=== PATIENT | female | born 1945 | race Caucasian/White ===

== ENCOUNTER 2020-07-16 10:13 | Outpatient (REF) | payer MEDICARE, SELFPAY ==
[2020-07-16 10:48] LABS: MANUAL DIFF FLAG NO
[2020-07-16 10:48] LABS: Urine Cytology See Pathology rpt
[2020-07-16 10:52] LABS: Basophils Absolute Auto 0.1 X10*3/uL (0.0-0.2); Basophils Percent Auto 0.7 % (0-2); Eosinophils Absolute Auto 0.3 X10*3/uL (0.0-0.4); Hematocrit 39.2 % (37-47); Hemoglobin 13.1 g/dl (12.0-16.0); Imm Gran Abs Auto 0.06 X10*3/uL (0.00-0.03); Imm Gran Pct Auto 0.8 % (0.0-0.4); Lymphocytes Absolute Auto 2.3 X10*3/uL (1.2-4.9); Lymphocytes Percent Auto 31.5 % (20-40); Mean Corpuscular HGB Conc 33.4 g/dl (31.0-35.0); Mean Corpuscular Hemoglobin 31.3 pg (27.0-33.0); Mean Corpuscular Volume 93.6 fL (80-98); Mean Platelet Volume 10.2 fL (9.4-12.3); Monocytes Absolute Auto 0.5 X10*3/uL (0.1-1.2); Monocytes Percent Auto 6.3 % (2-11); Neutrophils Absolute Auto 4.2 X10*3/uL (2.0-8.3); Neutrophils Percent Auto 56.7 % (45-73); Platelet Count 201 X10*3/uL (160-400); Red Blood Count 4.19 X10*6/uL (4.20-5.50); Red Cell Distribution Width 12.5 % (11.0-16.0); White Blood Count 7.3 X10*3/uL (4.8-10.8)
[2020-07-16 11:00] LABS: Glucose Urine UA NEG (NEG); Leukocyte Esterase Urine 1+ (NEG); Nitrite Urine NEG (NEG); Specific Gravity - Urine 1.025 (1.005-1.025); UACC Culture Trigger YES; Urine Blood TRACE (NEG); Urine Ketones NEG (NEG); Urine Protein NEG (NEG-TRACE)
[2020-07-16 11:02] LABS: Appearance Urine HAZY; Color Urine YELLOW
[2020-07-16 11:08] LABS: Renal Epithelial Cells Urine 1+ /LPF; Squamous Epithelial Cell Urine 1+ /LPF
[2020-07-16 11:29] LABS: Alanine Aminotransferase 21 U/L (0-31); Albumin Level 4.2 g/dL (3.5-5.0); Alkaline Phosphatase 83 U/L (39-117); Anion Gap 11 (12-20); Aspartate Amino Transferase 20 U/L (5-31); Bilirubin Total 0.8 mg/dL (0.0-1.0); Blood Urea Nitrogen 28 mg/dL (9-16); Calcium 9.3 mg/dL (8.4-10.2); Carbon Dioxide 30 mmol/L (22-29); Chloride 104 mmol/L (96-108); Estimated Glomerular Filt Rate 57; Glucose Random 96 mg/dL (60-115); Potassium 4.4 mmol/L (3.3-5.1); Sodium 141 mmol/L (135-145); Total Protein 7.1 g/dL (6.5-8.0)
[2020-07-16 11:32] LABS: Erythrocyte Sedimentation Rate 18 MM/HR (0-20)
[2020-07-16 11:41] LABS: TSH reflex Free T4 2.88 mIU/mL (0.32-4.0)
[2020-07-16 11:42] LABS: Creatinine Urine 85.87 mg/dL; Microalbumin Urine < 5.0 mg/L
[2020-07-19 16:01] LABS: Folate 17.7 ng/mL (> or = 4.0); Vitamin B12 269 pg/mL (200-900)
== END 2020-07-16 10:14 | disposition home or self-care (01) ==
LOC: HO.LAB 10:13
PROVIDERS: PCP Internal Medicine; Visit Provider Internal Medicine
DX: R41.0 Disorientation, unspecified (principal); R31.29 Other microscopic hematuria
CPT/HCPCS: 36415; 80053; 81001; 81003; 82043; 82607; 82746; 84443; 85025; 85652; 87086; 88112

== ENCOUNTER 2020-12-18 11:35 | Outpatient (REF) | payer MEDICARE, SELFPAY ==
[2020-12-18 15:14] LABS: MANUAL DIFF FLAG NO
[2020-12-18 15:49] LABS: Basophils Percent Auto 0.6 % (0-2); Eosinophils Absolute Auto 0.3 X10*3/uL (0.0-0.4); Eosinophils Percent Auto 4.7 % (0-4); Hematocrit 38.7 % (37-47); Imm Gran Abs Auto 0.03 X10*3/uL (0.00-0.03); Imm Gran Pct Auto 0.5 % (0.0-0.4); Lymphocytes Absolute Auto 2.1 X10*3/uL (1.2-4.9); Lymphocytes Percent Auto 31.9 % (20-40); Mean Corpuscular HGB Conc 33.6 g/dl (31.0-35.0); Mean Corpuscular Hemoglobin 31.2 pg (27.0-33.0); Mean Corpuscular Volume 92.8 fL (80-98); Mean Platelet Volume 10.4 fL (9.4-12.3); Monocytes Absolute Auto 0.4 X10*3/uL (0.1-1.2); Monocytes Percent Auto 6.7 % (2-11); Neutrophils Absolute Auto 3.6 X10*3/uL (2.0-8.3); Neutrophils Percent Auto 55.6 % (45-73); Platelet Count 180 X10*3/uL (160-400); Red Blood Count 4.17 X10*6/uL (4.20-5.50); Red Cell Distribution Width 12.3 % (11.0-16.0); White Blood Count 6.4 X10*3/uL (4.8-10.8)
[2020-12-18 16:01] LABS: Alanine Aminotransferase 21 U/L (0-31); Albumin Level 4.1 g/dL (3.5-5.0); Alkaline Phosphatase 84 U/L (39-117); Anion Gap 14 (12-20); Aspartate Amino Transferase 21 U/L (5-31); Bilirubin Total 0.6 mg/dL (0.0-1.0); Blood Urea Nitrogen 24 mg/dL (9-16); Calcium 9.3 mg/dL (8.4-10.2); Carbon Dioxide 26 mmol/L (22-29); Chloride 106 mmol/L (96-108); Cholesterol 210 mg/dL; Estimated Glomerular Filt Rate 60; Glucose Fasting 83 mg/dL (60-99); HDL Cholesterol 45 mg/dL; LDL Cholesterol Calculated 123 mg/dl; Potassium 4.5 mmol/L (3.3-5.1); Sodium 141 mmol/L (135-145); Total Protein 7.3 g/dL (6.5-8.0); Triglycerides 211 mg/dL
[2020-12-22 21:06] LABS: Vitamin D 25-OH, D2 <4 ng/mL; Vitamin D 25-OH, D3 20 ng/mL; Vitamin D 25-OH, Total 20 ng/mL (30-100)
== END 2020-12-18 11:36 | disposition home or self-care (01) ==
LOC: HO.HMGCLDS 11:35
PROVIDERS: PCP Internal Medicine; Visit Provider Internal Medicine
DX: E55.9 Vitamin D deficiency, unspecified (principal); E78.5 Hyperlipidemia, unspecified; I10 Essential (primary) hypertension; D64.9 Anemia, unspecified
CPT/HCPCS: 36415; 80053; 80061; 82306; 85025

== ENCOUNTER 2021-07-28 11:14 | Outpatient (REF) | payer MEDICARE, SELFPAY ==
[2021-07-28 11:45] LABS: MANUAL DIFF FLAG NO
[2021-07-28 13:04] LABS: Basophils Absolute Auto 0.1 X10*3/uL (0.0-0.2); Basophils Percent Auto 0.8 % (0-2); Eosinophils Absolute Auto 0.3 X10*3/uL (0.0-0.4); Eosinophils Percent Auto 3.9 % (0-4); Hematocrit 38.3 % (37.0-47.0); Hemoglobin 12.6 g/dl (12.0-16.0); Imm Gran Abs Auto 0.03 X10*3/uL (0.00-0.03); Imm Gran Pct Auto 0.4 % (0.0-0.4); Lymphocytes Absolute Auto 2.2 X10*3/uL (1.2-4.9); Lymphocytes Percent Auto 31.2 % (20-40); Mean Corpuscular HGB Conc 32.9 g/dl (31.0-35.0); Mean Corpuscular Hemoglobin 30.2 pg (27.0-33.0); Mean Corpuscular Volume 91.8 fL (80.0-98.0); Mean Platelet Volume 10.7 fL (9.4-12.3); Monocytes Absolute Auto 0.5 X10*3/uL (0.1-1.2); Monocytes Percent Auto 7.5 % (2-11); Neutrophils Percent Auto 56.2 % (45-73); Platelet Count 177 X10*3/uL (160-400); Red Blood Count 4.17 X10*6/uL (4.20-5.50); Red Cell Distribution Width 12.4 % (11.0-16.0); White Blood Count 7.2 X10*3/uL (4.8-10.8)
[2021-07-28 13:40] LABS: Alanine Aminotransferase 25 U/L (0-31); Alkaline Phosphatase 81 U/L (39-117); Anion Gap 11 (12-20); Aspartate Amino Transferase 22 U/L (5-31); Bilirubin Total 0.6 mg/dL (0.0-1.0); Blood Urea Nitrogen 29 mg/dL (9-16); Calcium 9.3 mg/dL (8.4-10.2); Carbon Dioxide 28 mmol/L (22-29); Chloride 104 mmol/L (96-108); Cholesterol 146 mg/dL; Estimated Glomerular Filt Rate > 60; Glucose Fasting 87 mg/dL (60-99); HDL Cholesterol 44 mg/dL; LDL Cholesterol Calculated 72 mg/dl; Potassium 4.8 mmol/L (3.3-5.1); Sodium 138 mmol/L (135-145); Total Protein 7.1 g/dL (6.5-8.0); Triglycerides 152 mg/dL
[2021-07-28 14:03] LABS: TSH reflex Free T4 2.65 uIU/mL (0.32-4.0); Vitamin D 25-OH Total 25.9 ng/mL (>30)
== END 2021-07-28 11:15 | disposition home or self-care (01) ==
LOC: HO.LAB 11:14
PROVIDERS: PCP Internal Medicine; Visit Provider Internal Medicine
DX: I10 Essential (primary) hypertension (principal); E78.00 Pure hypercholesterolemia, unspecified; E55.9 Vitamin D deficiency, unspecified
CPT/HCPCS: 36415; 80053; 80061; 82306; 84443; 85025

== ENCOUNTER 2021-12-09 09:56 | Outpatient (REF) | payer OTHER, SELFPAY ==
[2021-12-09 11:08] LABS: Alanine Aminotransferase 30 U/L (0-31); Albumin Level 4.1 g/dL (3.5-5.0); Alkaline Phosphatase 89 U/L (39-117); Anion Gap 11 (12-20); Aspartate Amino Transferase 22 U/L (5-31); Bilirubin Total 0.7 mg/dL (0.0-1.0); Blood Urea Nitrogen 25 mg/dL (9-16); Calcium 9.3 mg/dL (8.4-10.2); Carbon Dioxide 28 mmol/L (22-29); Chloride 103 mmol/L (96-108); Cholesterol 199 mg/dL; Estimated Glomerular Filt Rate > 60; Glucose Fasting 94 mg/dL (60-99); HDL Cholesterol 47 mg/dL; LDL Cholesterol Calculated 119 mg/dl; Potassium 4.2 mmol/L (3.3-5.1); Sodium 138 mmol/L (135-145); Total Protein 7.2 g/dL (6.5-8.0); Triglycerides 168 mg/dL
[2021-12-09 11:25] LABS: Appearance Urine CLEAR; Color Urine YELLOW; Glucose Urine UA NEG (NEG); Leukocyte Esterase Urine 2+ (NEG); Nitrite Urine NEG (NEG); Specific Gravity - Urine 1.015 (1.005-1.025); UACC Culture Trigger YES; Urine Blood TRACE (NEG); Urine Ketones NEG (NEG); Urine Protein NEG (NEG-TRACE)
[2021-12-09 12:18] LABS: RBC Urine 0-2 /HPF (0); Squamous Epithelial Cell Urine 2+ /LPF
== END 2021-12-09 09:57 | disposition home or self-care (01) ==
LOC: HO.LAB 09:56
PROVIDERS: PCP Internal Medicine; Visit Provider Internal Medicine
DX: E78.00 Pure hypercholesterolemia, unspecified (principal); E55.9 Vitamin D deficiency, unspecified
CPT/HCPCS: 36415; 80053; 80061; 81001; 82306; 87086

== ENCOUNTER 2022-06-02 10:02 | Outpatient (REF) | payer OTHER, SELFPAY ==
[2022-06-02 14:21] LABS: Alanine Aminotransferase 29 U/L (0-31); Albumin Level 4.2 g/dL (3.5-5.0); Alkaline Phosphatase 94 U/L (39-117); Anion Gap 14 (12-20); Aspartate Amino Transferase 25 U/L (5-31); Bilirubin Total 0.6 mg/dL (0.0-1.0); Blood Urea Nitrogen 28 mg/dL (9-16); Calcium 9.8 mg/dL (8.4-10.2); Carbon Dioxide 27 mmol/L (22-29); Chloride 105 mmol/L (96-108); Cholesterol 158 mg/dL; Estimated Glomerular Filt Rate 55; Glucose Fasting 92 mg/dL (60-99); HDL Cholesterol 45 mg/dL; LDL Cholesterol Calculated 86 mg/dl; Potassium 4.6 mmol/L (3.3-5.1); Sodium 141 mmol/L (135-145); TSH reflex Free T4 2.95 uIU/mL (0.32-4.0); Total Protein 7.3 g/dL (6.5-8.0); Triglycerides 139 mg/dL
== END 2022-06-02 10:03 | disposition home or self-care (01) ==
LOC: HO.LAB 10:02
PROVIDERS: PCP Internal Medicine; Visit Provider Internal Medicine
DX: E78.00 Pure hypercholesterolemia, unspecified (principal); I10 Essential (primary) hypertension
CPT/HCPCS: 36415; 80053; 80061; 84443

== ENCOUNTER 2022-07-19 09:50 | Outpatient (REF) | payer OTHER, SELFPAY ==
--- NOTE | ~2022-07-19 | XR_ITS ---
EXAMINATION: XR CHEST CLINICAL INFORMATION: Cough, unspecified COMPARISON: 02/27/2020 TECHNIQUE: 2 views of the chest were obtained. FINDINGS: Low lung volumes. Mild left basilar opacities could represent an early infiltrate versus crowded lung markings. The cardiac silhouette is comparable. Tortuous versus ectatic probable a sending aorta. No effusion. XR/XR chest 2V IMPRESSION: Low lung volumes. Left basilar opacity could represent developing atelectasis or infiltrate. Follow-up PA and lateral films are recommended when the patient is able
[2022-07-19 12:16] LABS: Influenza A PCR NEGATIVE (Negative); Influenza B PCR NEGATIVE (Negative); Resp Syncy Virus RNA Qual PCR NEGATIVE (Negative); SARS COV2 PCR INHOUSE POSITIVE (Negative)
== END 2022-07-19 09:51 | disposition home or self-care (01) ==
LOC: HO.HMGCX 09:50
PROVIDERS: PCP Internal Medicine; Visit Provider Nurse Practitioner Family
DX: Z20.822 Contact with and (suspected) exposure to COVID-19 (principal); R05.9 Cough, unspecified
CPT/HCPCS: 0241U; 71046

== ENCOUNTER 2022-08-03 12:49 | Outpatient (REF) | payer OTHER, SELFPAY ==
--- NOTE | ~2022-08-03 | XR_ITS ---
EXAMINATION: XR CHEST CLINICAL INFORMATION: Respiratory disorder. Cough. COMPARISON: 07/19/2022. TECHNIQUE: PA and lateral views of the chest. XR/XR chest 2V FINDINGS/IMPRESSION: No infiltrate, effusion, pneumothorax is seen. There is a question of mild prominence of the pulmonary veins in their nondependent portions, raising the possibility of pulmonary venous hypertension. The heart appears normal in size. The aorta may be mildly uncoiled, raising suspicion for hypertension. A small amorphous calcification projects roughly over the expected location of the insertion of the right supraspinatus tendon on the humeral head, raising the possibility of calcific bursitis versus calcific tendinitis. There are mild degenerative changes of the spine.
== END 2022-08-03 12:50 | disposition home or self-care (01) ==
LOC: HO.XRAY 12:49
PROVIDERS: PCP Internal Medicine; Visit Provider Internal Medicine
DX: J98.8 Other specified respiratory disorders (principal)
CPT/HCPCS: 71046

== ENCOUNTER 2022-09-20 08:33 | Outpatient (REF) | payer OTHER, SELFPAY ==
[2022-09-20 08:51] LABS: MANUAL DIFF FLAG NO
[2022-09-20 09:37] LABS: Basophils Absolute Auto 0.1 X10*3/uL (0.0-0.2); Basophils Percent Auto 0.7 % (0-2); Eosinophils Absolute Auto 0.3 X10*3/uL (0.0-0.4); Eosinophils Percent Auto 3.7 % (0-4); Hematocrit 39.1 % (37.0-47.0); Hemoglobin 13.1 g/dl (12.0-16.0); Imm Gran Abs Auto 0.05 X10*3/uL (0.00-0.03); Imm Gran Pct Auto 0.7 % (0.0-0.4); Lymphocytes Absolute Auto 2.3 X10*3/uL (1.2-4.9); Lymphocytes Percent Auto 30.9 % (20-40); Mean Corpuscular HGB Conc 33.5 g/dl (31.0-35.0); Mean Corpuscular Hemoglobin 30.6 pg (27.0-33.0); Mean Corpuscular Volume 91.4 fL (80.0-98.0); Mean Platelet Volume 10.1 fL (9.4-12.3); Monocytes Absolute Auto 0.6 X10*3/uL (0.1-1.2); Monocytes Percent Auto 7.9 % (2-11); Neutrophils Absolute Auto 4.1 x10*3/uL (2.0-8.3); Neutrophils Percent Auto 56.1 % (45-73); Platelet Count 181 X10*3/uL (160-400); Red Blood Count 4.28 X10*6/uL (4.20-5.50); Red Cell Distribution Width 12.6 % (11.0-16.0); White Blood Count 7.4 X10*3/uL (4.8-10.8)
[2022-09-20 09:48] LABS: Appearance Urine Clear; Color Urine Yellow; Glucose Urine UA Negative (Negative); Leukocyte Esterase Urine Negative (Negative); Nitrite Urine Negative (Negative); Urine Blood Negative (Negative); Urine Ketones Negative (Negative); Urine Protein Negative (Neg-Trace)
[2022-09-20 10:30] LABS: Alanine Aminotransferase 22 U/L (0-31); Albumin Level 4.2 g/dL (3.5-5.0); Alkaline Phosphatase 76 U/L (39-117); Anion Gap 14 (12-20); Aspartate Amino Transferase 19 U/L (5-31); Bilirubin Total 0.9 mg/dL (0.0-1.0); Blood Urea Nitrogen 37 mg/dL (9-16); Calcium 9.8 mg/dL (8.4-10.2); Carbon Dioxide 27 mmol/L (22-29); Chloride 104 mmol/L (96-108); Cholesterol 161 mg/dL; Estimated Glomerular Filt Rate 48; Glucose Fasting 102 mg/dL (60-99); HDL Cholesterol 43 mg/dL; LDL Cholesterol Calculated 94 mg/dl; Potassium 4.4 mmol/L (3.3-5.1); Sodium 141 mmol/L (135-145); Total Protein 7.2 g/dL (6.5-8.0); Triglycerides 123 mg/dL
[2022-09-20 10:48] LABS: TSH reflex Free T4 3.21 uIU/mL (0.32-4.0); Vitamin D 25-OH Total 48.4 ng/mL (>30)
== END 2022-09-20 08:34 | disposition home or self-care (01) ==
LOC: HO.LAB 08:33
PROVIDERS: PCP Internal Medicine; Visit Provider Internal Medicine
DX: R30.0 Dysuria (principal); E78.00 Pure hypercholesterolemia, unspecified; E55.9 Vitamin D deficiency, unspecified; I10 Essential (primary) hypertension
CPT/HCPCS: 36415; 80053; 80061; 81003; 82306; 84443; 85025

== ENCOUNTER 2023-03-27 08:11 | Outpatient (REF) | payer OTHER, SELFPAY ==
[2023-03-27 08:43] LABS: MANUAL DIFF FLAG NO
[2023-03-27 09:11] LABS: Basophils Percent Auto 0.6 % (0-2); Eosinophils Absolute Auto 0.3 X10*3/uL (0.0-0.4); Eosinophils Percent Auto 4.7 % (0-4); Hematocrit 38.5 % (37.0-47.0); Hemoglobin 12.9 g/dl (12.0-16.0); Imm Gran Abs Auto 0.03 X10*3/uL (0.00-0.03); Imm Gran Pct Auto 0.5 % (0.0-0.4); Lymphocytes Absolute Auto 1.9 X10*3/uL (1.2-4.9); Lymphocytes Percent Auto 29.4 % (20-40); Mean Corpuscular HGB Conc 33.5 g/dl (31.0-35.0); Mean Corpuscular Hemoglobin 31.1 pg (27.0-33.0); Mean Corpuscular Volume 92.8 fL (80.0-98.0); Mean Platelet Volume 9.7 fL (9.4-12.3); Monocytes Absolute Auto 0.5 X10*3/uL (0.1-1.2); Monocytes Percent Auto 7.1 % (2-11); Neutrophils Absolute Auto 3.6 x10*3/uL (2.0-8.3); Neutrophils Percent Auto 57.7 % (45-73); Platelet Count 172 X10*3/uL (160-400); Red Blood Count 4.15 X10*6/uL (4.20-5.50); Red Cell Distribution Width 12.3 % (11.0-16.0); White Blood Count 6.3 X10*3/uL (4.8-10.8)
[2023-03-27 09:40] LABS: Alanine Aminotransferase 19 U/L (0-31); Albumin Level 4.1 g/dL (3.5-5.0); Alkaline Phosphatase 79 U/L (39-117); Anion Gap 14 (12-20); Aspartate Amino Transferase 18 U/L (5-31); Bilirubin Total 0.5 mg/dL (0.0-1.0); Blood Urea Nitrogen 20 mg/dL (9-16); Calcium 9.5 mg/dL (8.4-10.2); Carbon Dioxide 28 mmol/L (22-29); Chloride 104 mmol/L (96-108); Cholesterol 176 mg/dL (<200); Estimated Glomerular Filt Rate > 60; Glucose Fasting 108 mg/dL (60-99); HDL Cholesterol 42 mg/dL (>40); LDL Cholesterol Calculated 100 mg/dL (<100); Potassium 4.2 mmol/L (3.3-5.1); Sodium 142 mmol/L (135-145); Total Protein 7.3 g/dL (6.5-8.0); Triglycerides 170 mg/dL (<150)
[2023-03-27 09:55] LABS: TSH reflex Free T4 4.27 uIU/mL (0.32-4.0); Vitamin D 25-OH Total 43.6 ng/mL (>30)
[2023-03-27 10:29] LABS: Free T4 (Free Thyroxine) 0.88 ng/dL (0.71-1.85)
== END 2023-03-27 08:12 | disposition home or self-care (01) ==
LOC: HO.LAB 08:11
PROVIDERS: PCP Internal Medicine; Visit Provider Internal Medicine
DX: E55.9 Vitamin D deficiency, unspecified (principal); I10 Essential (primary) hypertension; E78.00 Pure hypercholesterolemia, unspecified
CPT/HCPCS: 36415; 80053; 80061; 81001; 82306; 84439; 84443; 85025

== ENCOUNTER 2023-03-27 09:17 | Outpatient (AMB) | payer OTHER, SELFPAY ==
[2023-03-27 09:20] VITALS: BP 130/80; PULSE 77; O2SAT 97; BMI 27.3
--- NOTE | 2023-03-27 09:20 | MHC.PC.OV ---
Vital Signs 03/27/23 09:20 Height 5 ft 3 in Weight 154 lb 6 oz BMI 27.3 BP 130/80 Blood Pressure Location Lt brachial Position Sitting Pulse 77 Pulse Source Pulse Oximeter Pulse Oximetry (%) 97 Oxygen Delivery Method Room Air Intake Visit Reasons: HTN, hyperlipidemia, Switched with daughter Applications Support Analyst Required: No Accompanied by: Self / Same As Patient Allergies No Known Allergies [No Known Allergies*] Allergy (Verified 03/27/23 09:55) Medication List - Last Reconciled 03/27/23 by Howie Rangel MD atorvastatin 10 mg PO DAILY 90 days cholecalciferol (vitamin D3) 50 mcg PO DAILY 90 days clotrimazole-betamethasone 1-0.05 % 1 appl topical BID 2 weeks [DISPOSABLE BED PADS As directed] [DISPOSABLE GLOVES (medium) As directed - 2 boxes] [DISPOSABLE WIPES As directed - 5 boxes ] hydrochlorothiazide 25 mg PO QAM 90 days hydrocortisone 1% (Anti-Itch (hydrocortisone)) 1 appl topical BID PRN 14 days incontinence pad, liner, disp (Underpads Regular) As directed [incontinence wipes As directed] lisinopril 20 mg PO DAILY 90 days [MEDIUM ABSORBANCY BLADDER PADS As directed] miscellaneous medical supply 3 ea miscellaneous Q2-4H miscellaneous medical supply 3 ea miscellaneous TID miscellaneous medical supply 3 ea miscellaneous DAILY nystatin (Nystop) 1 appl topical TID 10 days travoprost 0.004% 1 drp ophthalmic (eye) QPM 30 days triamcinolone acetonide 0.5% 1 appl topical TID 10 days Tobacco use date assessed: 03/27/23 Fall risk assessment: No Falls in past year Last assessed Fall Risk: 03/27/23 Dental Screening Dental Screen Date: 03/27/23 Did you have a dental visit in the last 12 months?: Yes Did you have a dental problem in the last 6 months where you did not have access to dental care?: No Was dental information given to patient?: Patient has dentist HPI HTN, hyperlipidemia, Switched with daughter HPI Details Patient comes in today for her follow up visit States that she feels okay She denies any headaches or dizziness Denies any chest pains, no SOB No nausea/vomiting, no abdominal pain No change in bowel habits noted Needs her HCTZ Rx refilled Had her follow up labs done earlier this morning - to discuss her results Patient's daughter states that patient will be flying out to [place] in a couple of days to see her sister, whose health is supposedly failing, and would like to know if she should get her flu shot and COVID booster before she leaves States that patient will only be in [place] for about 4 days [facility] Medical History (Updated 03/27/23 @ 10:16 by Howie Rangel MD) Glaucoma Intertrigo Vitamin D deficiency Overweight (BMI 25.0-29.9) Benign essential hypertension Mixed hyperlipidemia Urge urinary incontinence Dyslipidemia Essential hypertension Hematuria, microscopic Surgical History History of colonoscopy Family History Father CAD (coronary artery disease) CVD (cardiovascular disease) Mother Vertigo Paternal Grandmother Cancer Family/Other FH: mental illness Maternal Aunt Cancer Daughter In good health Son In good health Sister In good health Brother In good health Other Mental health problem Social History Housing: House Alcohol intake: never Patient Tobacco Use Status: Former Tobacco user Tobacco use type: Cigarette e-Cigarette/Vaping Use: Never Used Second Hand Smoke Exposure: Yes service: No Current occupational status: disabled Cognitive needs: No Hearing needs: No Vision needs: No Questionnaire PHQ-9 Over the last 2 weeks, how often have you been bothered by any of the following problems? 1. Little interest or pleasure in doing things: not at all 2. Feeling down, depressed, or hopeless: not at all 3. Trouble falling or staying asleep, or sleeping too much: not at all 4. Feeling tired or having little energy: not at all 5. Poor appetite or overeating: not at all 6. Feeling bad about yourself - or that you are a failure or have let yourself or your family down: not at all 7. Trouble concentrating on things, such as reading the newspaper or watching television: not at all 8. Moving or speaking so slowly that other people could have noticed. Or the opposite - being so fidgety or restless that you have been moving around a lot more than usual: not at all 9. Thoughts that you would be better off or of hurting yourself in some way: not at all Total score: 0 Depression Screening Interpretation: Negative Depression Screening Done: Yes 66852 - PHQ-9 Billing: Yes Source: Developed by Drs. Roly Corral, Malaika Bloom, Shawn Cai and colleagues, with an educational vanessa from [employer]. Thrive Questionnaire Date Thrive assessed: 03/27/23 I am a: Patient What is your living situation today?: I have a steady place to live Within the past 12 months, did the food you bought not last and you didn't have the money to get more?: Never true Within the past 12 months, did you worry whether your food would run out before you got money to buy more?: Never true Do you have trouble paying for medicines?: No Do you have trouble getting transportation to medical appointments?: No Do you have trouble paying your heating and electricity bill?: No Do you have trouble taking care of your child, family member or friend?: No Do you have trouble with day-to-day activities such as bathing, preparing meals, shopping, managing finances, etc.?: No Are you currently unemployed and looking for a job?: No Are you interested in more education?: No Please select the resources that you would like help with: None Currently or been in a relationship where the following occur: no concerns reported AUDIT C Alcohol Use Questionnaire (AUDIT-C) 1. How often do you have a drink containing alcohol?: Never 3. How often do you have six or more drinks on one occasion?: Never Total Score: 0 Score Reviewed/Action Taken: Yes ADAM-7 AMB Questionnaire ADAM-7 Date ADAM - 7 assessed: 03/27/23 Feeling nervous, anxious, or on edge: 0 = Not at all Not being able to stop or control worryin = Not at all Worrying too much about different things: 0 = Not at all Trouble relaxin = Not at all Being so restless that it is hard to sit still: 0 = Not at all Becoming easily annoyed or irritable: 0 = Not at all Feeling afraid as if something awful might happen: 0 = Not at all Total ADAM-7 score (0-4 normal; 5-9 mild; 10-14 moderate; 15-21 severe): 0 Source: Developed by Drs. Roly Corral, Malaika Bloom, Shawn Cai and colleagues, with an educational vanessa from [employer]. Review of Systems Const Denies fatigue, Denies fever(s) and Denies headache(s) ENT Denies dysphagia, Denies dizziness, Denies otalgia, Denies headache(s), Denies neck pain, Denies odynophagia and Denies sore throat Card Denies chest pain, Denies palpitations and Denies dyspnea Resp Denies cough, Denies dyspnea and Denies wheezing GI Denies abdominal pain, Denies constipation, Denies dysphagia, Denies heartburn, Denies diarrhea, Denies nausea, Denies odynophagia and Denies vomiting Denies difficulty voiding, Denies nocturia, Denies dysuria and Reports urinary incontinence (mostly at night) Musc Denies back pain and Denies neck pain Skin/Breast Denies rash Neuro Denies dizziness and Denies headache(s) Endo Denies fatigue and Denies palpitations Aller/Immun Denies wheezing Physical exam (Primary Care) Vital Signs: Last Vital Signs Pulse 77 03/27/23 09:20 BP 130/80 03/27/23 09:20 Pulse Ox 97 03/27/23 09:20 Oxygen Delivery Method Room Air 03/27/23 09:20 BMI result Body Mass Index 27.3 Tobacco/Smoking Status: Tobacco use Status Tobacco use date assessed 03/27/23 03/27/23 09:21 Patient Tobacco Use Status Former Tobacco user 03/27/23 09:21 Tobacco use type Cigarette 03/27/23 09:21 e-Cigarette/Vaping Use Never Used 03/27/23 09:21 PHQ-9: PHQ-9 Score PHQ-9: Total score 0 03/27/23 09:47 Depression Screening Interpretation: Negative Thrive Assessment: Date of Thrive Assessment Date Thrive assessed 03/27/23 03/27/23 09:24 Currently or been in a relationship where the following occur: no concerns reported Const General: no acute distress and alert HENMT Ears: TM's normal bilaterally and EAC's normal Throat: Yes posterior oropharynx normal and Yes tonsils normal (no TP congestion) Neck Neck: Yes no lymphadenopathy and Yes supple Resp Auscultation: clear to auscultation bilaterally, no rales and no wheezes Cardio Rate: regular rate Rhythm: regular rhythm Heart sounds: no murmurs GI Palpation (GI): Soft to palpation and nontender Auscultation: normal bowel sounds Extrem General: Yes no clubbing, cyanosis or edema Results Reviewed Results Reviewed: Laboratory Tests 03/27/23 03/27/23 03/27/23 08:38 08:38 08:45 WBC 6.3 Hgb 12.9 Hct 38.5 Plt Count 172 Sodium 142 Potassium 4.2 Creatinine 0.83 Estimated GFR > 60 Fasting Glucose 108 H Calcium 9.5 AST 18 ALT 19 Triglycerides 170 H Cholesterol 176 LDL Cholesterol, Calc 100 H HDL Cholesterol 42 Ur Specific [place] 1.010 Urine Protein Negative Urine Glucose (UA) Negative Urine Blood 03/27/23 08:45 WBC Hgb Hct Plt Count Sodium Potassium Creatinine Estimated GFR Fasting Glucose Calcium AST ALT Triglycerides Cholesterol LDL Cholesterol, Calc HDL Cholesterol Ur Specific [place] Urine Protein Urine Glucose (UA) Urine Blood Negative Assessment and Plan Assessment & Plan (1) Mixed hyperlipidemia: Code(s): E78.2 - Mixed hyperlipidemia Plan: Results of her labs done earlier today reviewed and discussed with patient Continue Atorvastatin 10 mg QD Reinforced low-cholesterol diet Will recheck her labs and fasting lipids in 4 months for follow-up (2) Benign essential hypertension: Code(s): I10 - Essential (primary) hypertension Plan: Reinforced low sodium diet - goal is systolic BP of at least 130 to 140 mm or less Continue Lisinopril 20 mg QD and HCTZ 25 mg QD - Rx refilled (3) Vitamin D deficiency: Code(s): E55.9 - Vitamin D deficiency, unspecified Plan: Continue Vitamin D3 2000 units QD (4) Glaucoma: Code(s): H40.9 - Unspecified glaucoma Qualifiers: Glaucoma type: unspecified Laterality: bilateral Qualified Code(s): H40.9 - Unspecified glaucoma Plan: Continue Travatan 0.004% eye drops apply 1 drop to each eye Q PM Follow up with ophthalmology as scheduled (5) Overweight (BMI 25.0-29.9): Code(s): E66.3 - Overweight Plan: Reinforced diet; exercise and weight loss are not realistic expectations given patient's age but she is advised to try to stay active as much as she can Plan Have advised patient to get her high-dose flu vaccine at her local pharmacy today as she is leaving in less than 2 days; advised that it would normally take about 2 weeks for the COVID vaccine/booster to take effect and it is kind of too late for patient to get it now in time for her upcoming trip but she should plan to get it in 1 to 2 weeks when she comes back from her trip to [place] Have recommended that she wear a mask while she is travelling and consider also wearing a mask as often as she can when she is in [place] Follow up in 4 months Orders: Orders Lipid Panel 4 Months E78.00 - Pure hypercholesterolemia, unspecified Comprehensive [place]. Panel Fast 4 Months E78.00 - Pure hypercholesterolemia, unspecified TSH reflex Free T4 4 Months E78.00 - Pure hypercholesterolemia, unspecified Medications: Refilled hydrochlorothiazide 25 mg PO QAM 90 days 90 tabs 1RF I10 - Essential (primary) hypertension Coding Level of Care Code Est Pt Level 4 (82484) Diagnoses Mixed hyperlipidemia E78.2 Benign essential hypertension I10 Vitamin D deficiency E55.9 Glaucoma of both eyes, unspecified glaucoma type H40.9 Glaucoma type: unspecified Laterality: bilateral Overweight (BMI 25.0-29.9) E66.3
== END 2023-03-27 10:18 | disposition home or self-care (01) ==
PROVIDERS: PCP Internal Medicine; Visit Provider Internal Medicine
DX: E78.2 Mixed hyperlipidemia (principal); I10 Essential (primary) hypertension; E55.9 Vitamin D deficiency, unspecified; H40.9 Unspecified glaucoma; E66.3 Overweight
CPT/HCPCS: 99214

== ENCOUNTER 2023-12-06 10:35 | Outpatient (AMB) | payer OTHER, SELFPAY ==
[2023-12-06 10:41] VITALS: BP 144/72; PULSE 81; O2SAT 98; BMI 27.1
--- NOTE | 2023-12-06 10:41 | A.OFFPC_ITS ---
Vital Signs 12/06/23 10:41 12/06/23 11:30 Height 5 ft 3 in Weight 153 lb BMI 27.1 BP 144/72 H 130/70 Blood Pressure Location Lt brachial Lt brachial Position Sitting Sitting Pulse 81 Pulse Source Pulse Oximeter Pulse Oximetry (%) 98 Oxygen Delivery Method Room Air Intake Visit Reasons: hyperlipidemia, HTN Intake Note: Patient is here to follow up on hyperlipidemia, HTN Automatic Spooler Operator Required: No Allergies No Known Allergies [No Known Allergies*] Allergy (Verified 12/06/23 11:28) Medication List - Last Reconciled 12/06/23 by Howie Rangel MD atorvastatin 10 mg PO DAILY 90 days cholecalciferol (vitamin D3) 50 mcg PO DAILY 90 days clotrimazole-betamethasone 1-0.05 % 1 appl topical BID 2 weeks [DISPOSABLE BED PADS As directed] [DISPOSABLE GLOVES (medium) As directed - 2 boxes] [DISPOSABLE WIPES As directed - 5 boxes ] hydrochlorothiazide 25 mg PO QAM 90 days hydrocortisone 1% (Anti-Itch (hydrocortisone)) 1 appl topical BID PRN 14 days incontinence pad, liner, disp (Underpads Regular) As directed [incontinence wipes As directed] lisinopril 20 mg PO DAILY 90 days [MEDIUM ABSORBANCY BLADDER PADS As directed] miscellaneous medical supply 3 ea miscellaneous Q2-4H miscellaneous medical supply 3 ea miscellaneous TID miscellaneous medical supply 3 ea miscellaneous DAILY nystatin (Nystop) 1 appl topical TID 10 days travoprost 0.004% 1 drp ophthalmic (eye) QPM 30 days triamcinolone acetonide 0.5% 1 appl topical TID 10 days Tobacco use date assessed: 12/06/23 Fall risk assessment: No Falls in past year Last assessed Fall Risk: 12/06/23 Dental Screening Dental Screen Date: 03/27/23 HPI hyperlipidemia, HTN HPI Details Patient comes in today for her follow up visit - has not been back since March 2023 (states that she missed her appt in July 2023 as she was sick at the time) and has had no follow up labs done recently States that she currently feels okay She denies any headaches or dizziness Denies any chest pains, no SOB No nausea/vomiting, no abdominal pain No change in bowel habits noted Needs her Lisinopril Rx refilled PFSH Medical History Glaucoma Intertrigo Vitamin D deficiency Overweight (BMI 25.0-29.9) Benign essential hypertension Mixed hyperlipidemia Urge urinary incontinence Dyslipidemia Essential hypertension Hematuria, microscopic Surgical History History of colonoscopy Family History Father CAD (coronary artery disease) CVD (cardiovascular disease) Mother Vertigo Paternal Grandmother Cancer Family/Other FH: mental illness Maternal Aunt Cancer Daughter In good health Son In good health Sister In good health Brother In good health Other Mental health problem Social History Housing: House Alcohol intake: never Patient Tobacco Use Status: Former Tobacco user Tobacco use type: Cigarette e-Cigarette/Vaping Use: Never Used Second Hand Smoke Exposure: Yes service: No Current occupational status: disabled Cognitive needs: No Hearing needs: No Vision needs: No Questionnaire PHQ-9 Over the last 2 weeks, how often have you been bothered by any of the following problems? 1. Little interest or pleasure in doing things: not at all 2. Feeling down, depressed, or hopeless: not at all 3. Trouble falling or staying asleep, or sleeping too much: not at all 4. Feeling tired or having little energy: not at all 5. Poor appetite or overeating: not at all 6. Feeling bad about yourself - or that you are a failure or have let yourself or your family down: not at all 7. Trouble concentrating on things, such as reading the newspaper or watching television: not at all 8. Moving or speaking so slowly that other people could have noticed. Or the opposite - being so fidgety or restless that you have been moving around a lot more than usual: not at all 9. Thoughts that you would be better off or of hurting yourself in some way: not at all Total score: 0 Depression Screening Interpretation: Negative Depression Screening Done: Yes 54304 - PHQ-9 Billing: Yes Source: Developed by Drs. Roly Corral, Malaika BShawn Nguyễn and colleagues, with an educational vanessa from [employer]. Thrive Questionnaire Date Thrive assessed: 12/06/23 I am a: Patient What is your living situation today?: I have a steady place to live Within the past 12 months, did the food you bought not last and you didn't have the money to get more?: Never true Within the past 12 months, did you worry whether your food would run out before you got money to buy more?: Never true Do you have trouble paying for medicines?: No Do you have trouble getting transportation to medical appointments?: No Do you have trouble paying your heating and electricity bill?: No Do you have trouble taking care of your child, family member or friend?: No Do you have trouble with day-to-day activities such as bathing, preparing meals, shopping, managing finances, etc.?: No Are you currently unemployed and looking for a job?: No Are you interested in more education?: No Please select the resources that you would like help with: None Currently or been in a relationship where the following occur: no concerns reported THRIVE Score: 0 AUDIT C Alcohol Use Questionnaire (AUDIT-C) 1. How often do you have a drink containing alcohol?: Never 3. How often do you have six or more drinks on one occasion?: Never Total Score: 0 Score Reviewed/Action Taken: Yes ADAM-7 AMB Questionnaire ADAM-7 Date ADAM - 7 assessed: 12/06/23 Feeling nervous, anxious, or on edge: 0 = Not at all Not being able to stop or control worryin = Not at all Worrying too much about different things: 0 = Not at all Trouble relaxin = Not at all Being so restless that it is hard to sit still: 0 = Not at all Becoming easily annoyed or irritable: 0 = Not at all Feeling afraid as if something awful might happen: 0 = Not at all Total ADAM-7 score (0-4 normal; 5-9 mild; 10-14 moderate; 15-21 severe): 0 Source: Developed by Drs. Roly Corral, Shawn Raymond and colleagues, with an educational vanessa from [employer]. Review of Systems Const Denies chills, Denies fatigue, Denies fever(s) and Denies headache(s) ENT Denies dysphagia, Denies dizziness, Denies otalgia, Denies headache(s), Denies neck pain, Denies odynophagia and Denies sore throat Card Denies chest pain, Denies palpitations and Denies dyspnea Resp Denies cough, Denies dyspnea and Denies wheezing GI Denies abdominal pain, Denies constipation, Denies dysphagia, Denies heartburn, Denies diarrhea, Denies nausea, Denies odynophagia and Denies vomiting Denies difficulty voiding, Denies nocturia, Denies dysuria, Reports urinary incontinence (mostly at night) and Denies urinary urgency Musc Denies back pain and Denies neck pain Skin/Breast Denies rash Neuro Denies dizziness and Denies headache(s) Endo Denies fatigue and Denies palpitations Aller/Immun Denies wheezing Physical exam (Primary Care) Vital Signs: Last Vital Signs Pulse 81 12/06/23 10:41 BP 144/72 H 12/06/23 10:41 Pulse Ox 98 12/06/23 10:41 Oxygen Delivery Method Room Air 12/06/23 10:41 BMI result Body Mass Index 27.1 Tobacco/Smoking Status: Tobacco use Status Tobacco use date assessed 12/06/23 12/06/23 10:43 Patient Tobacco Use Status Former Tobacco user 12/06/23 10:43 Tobacco use type Cigarette 12/06/23 10:43 e-Cigarette/Vaping Use Never Used 12/06/23 10:43 PHQ-9: PHQ-9 Score PHQ-9: Total score 0 12/06/23 10:52 Depression Screening Interpretation: Negative Thrive Assessment: Date of Thrive Assessment Date Thrive assessed 12/06/23 12/06/23 10:43 Currently or been in a relationship where the following occur: no concerns reported Const General: no acute distress and alert HENMT Ears: TM's normal bilaterally and EAC's normal Throat: Yes posterior oropharynx normal and Yes tonsils normal (no TP congestion) Neck Neck: Yes no lymphadenopathy and Yes supple Thyroid: Thyroid normal Resp Auscultation: clear to auscultation bilaterally, no rales and no wheezes Cardio Rate: regular rate Rhythm: regular rhythm Heart sounds: no murmurs GI Palpation (GI): Soft to palpation and nontender Auscultation: normal bowel sounds Extrem General: Yes no clubbing, cyanosis or edema Assessment and Plan Assessment & Plan (1) Mixed hyperlipidemia: Code(s): E78.2 - Mixed hyperlipidemia Plan: She has not had any follow up labs done since March 2023 Continue Atorvastatin 10 mg QD Reinforced low-cholesterol diet Will recheck her labs and fasting lipids in 4 months for follow-up (2) Benign essential hypertension: Code(s): I10 - Essential (primary) hypertension Plan: Reinforced low sodium diet - goal is systolic BP of at least 130 to 140 mm or less Continue Lisinopril 20 mg QD (Rx refilled) and HCTZ 25 mg QD (3) Vitamin D deficiency: Code(s): E55.9 - Vitamin D deficiency, unspecified Plan: Continue Vitamin D3 2000 units QD (4) Glaucoma: Code(s): H40.9 - Unspecified glaucoma Qualifiers: Glaucoma type: unspecified Laterality: bilateral Qualified Code(s): H40.9 - Unspecified glaucoma Plan: Continue Travatan 0.004% eye drops apply 1 drop to each eye Q PM Follow up with ophthalmology as scheduled (5) Overweight (BMI 25.0-29.9): Code(s): E66.3 - Overweight Plan: Reinforced diet; exercise and weight loss are not realistic expectations given patient's age but she is advised to try to stay active as much as she can Plan Follow up in 4 months Orders: Orders Complete Blood Count Auto Diff 4 Months D64.9 - Anemia, unspecified Comprehensive [place]. Panel Fast 4 Months E78.00 - Pure hypercholesterolemia, unspecified Lipid Panel 4 Months E78.00 - Pure hypercholesterolemia, unspecified Vitamin D 25-OH Total 4 Months E55.9 - Vitamin D deficiency, unspecified TSH reflex Free T4 4 Months E78.00 - Pure hypercholesterolemia, unspecified UA CC w/rflx Micro + Cult 4 Months R30.0 - Dysuria Vitamin B12 and Folate 4 Months E53.8 - Deficiency of other specified B group vitamins Medications: Refilled lisinopril 20 mg PO DAILY 90 days 90 tabs 1RF I10 - Essential (primary) hypertension Coding Level of Care Code Est Pt Level 4 (73507) Diagnoses Mixed hyperlipidemia E78.2 Benign essential hypertension I10 Vitamin D deficiency E55.9 Glaucoma of both eyes, unspecified glaucoma type H40.9 Glaucoma type: unspecified Laterality: bilateral Overweight (BMI 25.0-29.9) E66.3
[2023-12-06 11:30] VITALS: BP 130/70
== END 2023-12-06 11:36 | disposition home or self-care (01) ==
PROVIDERS: PCP Internal Medicine; Visit Provider Internal Medicine
DX: E78.2 Mixed hyperlipidemia (principal); I10 Essential (primary) hypertension; E55.9 Vitamin D deficiency, unspecified; H40.9 Unspecified glaucoma; E66.3 Overweight
CPT/HCPCS: 99214

== ENCOUNTER 2024-03-25 11:48 | Outpatient (AMB) | payer OTHER, SELFPAY ==
--- NOTE | 2024-03-25 12:49 | AM.OFFWIN_ITS ---
Intake Vital Signs 03/25/24 12:52 Height 5 ft 3 in Weight 153 lb BMI 27.1 BP 136/78 Blood Pressure Location Rt brachial Position Sitting Pulse 58 Pulse Source Pulse Oximeter Pulse Oximetry (%) 98 Oxygen Delivery Method Room Air Intake Visit Reasons: EP pain on her left foot & swollen Intake Note: Patient here for left foot swelling that started Sunday and has become very painful. Patient Tobacco Use Status: Former Tobacco user Allergies No Known Allergies [No Known Allergies*] Allergy (Verified 03/25/24 12:52) Do you need a note to return to daycare/school/sports/work: No HPI HPI Comments History of Present Illness Details Patient presents with daughter for left foot pain Daughter giving hx Discomfort complaint started Sunday No known trauma or injury Increased swelling and pain since Worse with ambulation Tried tylenol without relief. ice overnight with elevation Pain level is rated 10/10 per daughter No falls. She lives with daughter [facility] Medical History Glaucoma Intertrigo Vitamin D deficiency Overweight (BMI 25.0-29.9) Benign essential hypertension Mixed hyperlipidemia Urge urinary incontinence Dyslipidemia Essential hypertension Hematuria, microscopic Surgical History History of colonoscopy Family History Father CAD (coronary artery disease) CVD (cardiovascular disease) Mother Vertigo Paternal Grandmother Cancer Family/Other FH: mental illness Maternal Aunt Cancer Daughter In good health Son In good health Sister In good health Brother In good health Other Mental health problem Social History Housing: House Alcohol intake: never Patient Tobacco Use Status: Former Tobacco user Tobacco use type: Cigarette e-Cigarette/Vaping Use: Never Used Second Hand Smoke Exposure: Yes service: No Current occupational status: disabled Cognitive needs: No Hearing needs: No Vision needs: No Review of Systems Const Denies chills and Denies fever(s) Card Reports pedal edema (injury) and Denies leg edema Musc Reports arthralgias, Reports joint swelling, Denies numbness and Denies tingling Skin/Breast Reports erythema (edema and slight redness top of L foot) Neuro Denies numbness, Denies tingling and Denies paresthesias Physical Exam Vital Signs: Last Vital Signs Pulse 58 03/25/24 12:52 BP 136/78 03/25/24 12:52 Pulse Ox 98 03/25/24 12:52 Oxygen Delivery Method Room Air 03/25/24 12:52 BMI result Body Mass Index 27.1 General: Non-toxic, NAD. Sitting upright in wheelchair Skin: Warm dry throughout. L dorsal aspect foot along 4-5th metatarsal region + edema and erythema. No large ecchymosis. Plantar aspect without FB or wounds. Eye: EOMI Respiratory: No respiratory distress Cardiac: DP pulse intact LLE MSK: + tenderness to palpation LLE dorsal aspect foot along 4th metatarsal bone. No digit ttp L foot. No medial/lateral malleoli, achilles, calcaneus or plantar fascia ttp L foot. Neurology: A/O. No facial droop. Psych: Good mood and affect Assessment & Plan Assessment & Plan (1) Foot pain, left: Code(s): M79.672 - Pain in left foot Plan: Patient seen and evaluated. Xray L foot: I viewed and saw no acute abnormality Concern diangosis is osteoarthritis exacerbation of L foot There is no sign of FB or cellulitis on exam. No osteo on xray Pt having difficulty with ambulation and will give compression SHEBA for edema and advised elevation and ice Will hold on narcotic pain medication that can cause delerium or altered balance as pt high fall risk but will give naproxen short course. Renal function checked prior to script Orthopedic referral given Daughter and pt gave verbal understanding and had no additional questions or concerns at time of discharge All questions answered Orders: Orders XR foot LT min 3V Today M79.672 - Pain in left foot Referrals Orthopedics Referral M79.672 - Pain in left foot Medications: New naproxen do not take with Advil, ibuprofen or Aleve 375 mg PO BID PRN 10 tabs 0RF pain Coding Level of Care Code Est Pt Level 3 (69469) Diagnoses Foot pain, left M79.672
[2024-03-25 12:52] VITALS: BP 136/78; PULSE 58; O2SAT 98; BMI 27.1
== END 2024-03-25 14:12 | disposition home or self-care (01) ==
PROVIDERS: PCP Internal Medicine; Visit Provider Physician Assistant
DX: M79.672 Pain in left foot (principal)

== ENCOUNTER → 2024-03-25 11:48 | Outpatient (BNVA) | payer OTHER, SELFPAY | PROVIDERS: PCP Internal Medicine ==

== ENCOUNTER 2024-03-25 13:08 | Outpatient (REF) | payer OTHER, SELFPAY ==
--- NOTE | ~2024-03-25 | XR_ITS ---
EXAMINATION: XR FOOT, LEFT CLINICAL INFORMATION: Left foot pain COMPARISON: None available. TECHNIQUE: AP, lateral, and oblique views of the left foot. FINDINGS: No acute fracture. Mild hallux valgus and 1st MTP joint osteoarthritis. There is cortical thickening/periosteal mineralization along the 2nd and 4th mid metatarsal shafts which could represent stress reaction of uncertain chronicity. Prominent heel spur and posterior calcaneal enthesophyte. XR/XR foot LT min 3V IMPRESSION: 1. No acute fracture. 2. Cortical thickening/periosteal mineralization along the 2nd and 4th mid metatarsal shafts which could represent stress reaction of uncertain chronicity. Electronically signed by: Scott Hawk MD 03/25/2024 03:15 PM EDT
== END 2024-03-25 13:09 | disposition home or self-care (01) ==
LOC: HO.HMGCX 13:08
PROVIDERS: PCP Internal Medicine; Visit Provider Physician Assistant
DX: M79.672 Pain in left foot (principal)
CPT/HCPCS: 73630; 99212

== ENCOUNTER 2024-05-02 10:18 | Outpatient (REF) | payer OTHER, SELFPAY ==
[2024-05-02 10:52] LABS: MANUAL DIFF FLAG NO
[2024-05-02 11:38] LABS: Basophils Absolute Auto 0.1 X10*3/uL (0.0-0.2); Basophils Percent Auto 0.9 % (0-2); Eosinophils Absolute Auto 0.3 X10*3/uL (0.0-0.4); Eosinophils Percent Auto 4.1 % (0-4); Hematocrit 37.5 % (37.0-47.0); Hemoglobin 12.5 g/dl (12.0-16.0); Imm Gran Abs Auto 0.04 X10*3/uL (0.00-0.03); Imm Gran Pct Auto 0.5 % (0.0-0.4); Lymphocytes Absolute Auto 2.2 X10*3/uL (1.2-4.9); Lymphocytes Percent Auto 29.3 % (20-40); Mean Corpuscular HGB Conc 33.3 g/dl (31.0-35.0); Mean Corpuscular Hemoglobin 30.8 pg (27.0-33.0); Mean Corpuscular Volume 92.4 fL (80.0-98.0); Mean Platelet Volume 10.3 fL (9.4-12.3); Monocytes Absolute Auto 0.5 X10*3/uL (0.1-1.2); Monocytes Percent Auto 6.9 % (2-11); Neutrophils Absolute Auto 4.4 x10*3/uL (2.0-8.3); Neutrophils Percent Auto 58.3 % (45-73); Platelet Count 159 X10*3/uL (160-400); Red Blood Count 4.06 X10*6/uL (4.20-5.50); Red Cell Distribution Width 12.3 % (11.0-16.0); White Blood Count 7.5 X10*3/uL (4.8-10.8)
[2024-05-02 12:02] LABS: Appearance Urine Clear; Color Urine Yellow; Glucose Urine UA Negative (Negative); Leukocyte Esterase Urine Moderate (2+) (Negative); Nitrite Urine Negative (Negative); UMIC TRIGGER UACC YES; Urine Blood Negative (Negative); Urine Ketones Negative (Negative); Urine Protein Negative (Neg-Trace)
[2024-05-02 12:13] LABS: Bacteria Urine Trace (None Seen); Hyaline Casts Urine 0-2 /LPF (0-2); RBC Urine 0-2 /HPF (0-2); WBC Urine 0-5 /HPF (0-5)
[2024-05-02 12:27] LABS: Alanine Aminotransferase 28 U/L (0-31); Alkaline Phosphatase 76 U/L (39-117); Anion Gap 10 (12-20); Aspartate Amino Transferase 29 U/L (5-31); Bilirubin Total 0.5 mg/dL (0.0-1.0); Blood Urea Nitrogen 34 mg/dL (9-16); Carbon Dioxide 29 mmol/L (22-29); Chloride 105 mmol/L (96-108); Cholesterol 176 mg/dL (<200); Estimated Glomerular Filt Rate > 60; Glucose Fasting 96 mg/dL (60-99); HDL Cholesterol 47 mg/dL (>40); LDL Cholesterol Calculated 101 mg/dL (<100); Potassium 4.4 mmol/L (3.3-5.1); Sodium 140 mmol/L (135-145); TSH reflex Free T4 2.97 uIU/mL (0.32-4.0); Total Protein 7.2 g/dL (6.5-8.0); Triglycerides 140 mg/dL (<150); Vitamin D 25-OH Total 45.3 ng/mL (>30)
[2024-05-02 13:07] LABS: Folate 15.1 ng/mL (> or = 4.0); Vitamin B12 377 pg/mL (200-900)
== END 2024-05-02 10:19 | disposition home or self-care (01) ==
LOC: HO.LAB 10:18
PROVIDERS: PCP Internal Medicine; Visit Provider Internal Medicine
DX: D64.9 Anemia, unspecified (principal); E78.00 Pure hypercholesterolemia, unspecified; E53.8 Deficiency of other specified B group vitamins; E55.9 Vitamin D deficiency, unspecified
CPT/HCPCS: 36415; 80053; 80061; 81001; 81003; 82306; 82607; 82746; 84443; 85025

== ENCOUNTER 2024-05-08 12:49 | Outpatient (AMB) | payer OTHER, SELFPAY ==
[2024-05-08 12:51] VITALS: BP 124/76; PULSE 84; O2SAT 96; BMI 26.9
--- NOTE | 2024-05-08 12:51 | A.OFFPC_ITS ---
Vital Signs 05/08/24 12:51 Height 5 ft 3 in Weight 152 lb 2 oz BMI 26.9 BP 124/76 Blood Pressure Location Lt brachial Position Sitting Pulse 84 Pulse Source Pulse Oximeter Pulse Oximetry (%) 96 Oxygen Delivery Method Room Air Intake Visit Reasons: 4-M FOLLOW UP Hourly Shift Required: No Accompanied by: Self / Same As Patient Allergies No Known Allergies [No Known Allergies*] Allergy (Verified 05/08/24 13:06) Medication List - Last Reconciled 05/08/24 by Howie Rangel MD atorvastatin 10 mg PO DAILY 90 days cholecalciferol (vitamin D3) 50 mcg PO DAILY 90 days clotrimazole-betamethasone 1-0.05 % 1 appl topical BID 2 weeks [DISPOSABLE BED PADS As directed] [DISPOSABLE GLOVES (medium) As directed - 2 boxes] [DISPOSABLE WIPES As directed - 5 boxes ] hydrochlorothiazide 25 mg PO QAM 90 days hydrocortisone 1% (Anti-Itch (hydrocortisone)) 1 appl topical BID PRN 14 days incontinence pad, liner, disp (Underpads Regular) As directed [incontinence wipes As directed] lisinopril 20 mg PO DAILY 90 days [MEDIUM ABSORBANCY BLADDER PADS As directed] miscellaneous medical supply 3 ea miscellaneous Q2-4H miscellaneous medical supply 3 ea miscellaneous TID miscellaneous medical supply 3 ea miscellaneous DAILY naproxen 375 mg PO BID PRN nystatin (Nystop) 1 appl topical TID 10 days travoprost 0.004% 1 drp ophthalmic (eye) QPM 30 days triamcinolone acetonide 0.5% 1 appl topical TID 10 days Tobacco use date assessed: 05/08/24 Fall risk assessment: No Falls in past year Last assessed Fall Risk: 05/08/24 Dental Screening Dental Screen Date: 05/08/24 Did you have a dental visit in the last 12 months?: No Did you have a dental problem in the last 6 months where you did not have access to dental care?: No Was dental information given to patient?: No HPI 4-M FOLLOW UP HPI Details Patient comes in today for her follow up visit States that she feels okay except for recurrent tingling sensation in her right arm, which she states has been going on for a while now States that her right arm does not feel weak and she has no increased neck pain or shoulder pains or elbow pains lately and that the right arm symptoms do not wake her up or keep her up at night but it feels annoying and she would like to find out what to do about it She denies any headaches or dizziness Denies any chest pains, no increased SOB No nausea/vomiting, no abdominal pain No change in bowel habits noted Needs her vitamin D Rx refilled today She had her follow up labs done last week - to discuss her results She would also like to get her flu shot today PFSH Medical History Glaucoma Intertrigo Vitamin D deficiency Overweight (BMI 25.0-29.9) Benign essential hypertension Mixed hyperlipidemia Urge urinary incontinence Dyslipidemia Essential hypertension Hematuria, microscopic Surgical History History of colonoscopy Family History Father CAD (coronary artery disease) CVD (cardiovascular disease) Mother Vertigo Paternal Grandmother Cancer Family/Other FH: mental illness Maternal Aunt Cancer Daughter In good health Son In good health Sister In good health Brother In good health Other Mental health problem Social History Housing: House Alcohol intake: never Patient Tobacco Use Status: Former Tobacco user Tobacco use type: Cigarette e-Cigarette/Vaping Use: Never Used Second Hand Smoke Exposure: Yes service: No Current occupational status: disabled Cognitive needs: No Hearing needs: No Vision needs: No Questionnaire PHQ-9 Over the last 2 weeks, how often have you been bothered by any of the following problems? 1. Little interest or pleasure in doing things: not at all 2. Feeling down, depressed, or hopeless: not at all 3. Trouble falling or staying asleep, or sleeping too much: not at all 4. Feeling tired or having little energy: not at all 5. Poor appetite or overeating: not at all 6. Feeling bad about yourself - or that you are a failure or have let yourself or your family down: not at all 7. Trouble concentrating on things, such as reading the newspaper or watching television: not at all 8. Moving or speaking so slowly that other people could have noticed. Or the opposite - being so fidgety or restless that you have been moving around a lot more than usual: not at all 9. Thoughts that you would be better off or of hurting yourself in some way: not at all Total score: 0 Depression Screening Interpretation: Negative Depression Screening Done: Yes 01152 - PHQ-9 Billing: Yes Source: Developed by Drs. Roly Corral, Malaika Bloom, Shawn Cai and colleagues, with an educational vanessa from [employer]. Thrive Questionnaire Date Thrive assessed: 05/08/24 I am a: Patient What is your living situation today?: I have a steady place to live Within the past 12 months, did the food you bought not last and you didn't have the money to get more?: Never true Within the past 12 months, did you worry whether your food would run out before you got money to buy more?: Never true Do you have trouble paying for medicines?: No Do you have trouble getting transportation to medical appointments?: No Do you have trouble paying your heating and electricity bill?: No Do you have trouble taking care of your child, family member or friend?: No Do you have trouble with day-to-day activities such as bathing, preparing meals, shopping, managing finances, etc.?: No Are you currently unemployed and looking for a job?: No Are you interested in more education?: No Please select the resources that you would like help with: None Currently or been in a relationship where the following occur: No concerns reported THRIVE Score: 0 AUDIT C Alcohol Use Questionnaire (AUDIT-C) 1. How often do you have a drink containing alcohol?: Never 3. How often do you have six or more drinks on one occasion?: Never Total Score: 0 Score Reviewed/Action Taken: Yes ADAM-7 AMB Questionnaire ADAM-7 Date ADAM - 7 assessed: 05/08/24 Feeling nervous, anxious, or on edge: 0 = Not at all Not being able to stop or control worryin = Not at all Worrying too much about different things: 0 = Not at all Trouble relaxin = Not at all Being so restless that it is hard to sit still: 0 = Not at all Becoming easily annoyed or irritable: 0 = Not at all Feeling afraid as if something awful might happen: 0 = Not at all Total ADAM-7 score (0-4 normal; 5-9 mild; 10-14 moderate; 15-21 severe): 0 Source: Developed by Drs. Roly Corral, Malaika Bloom, Shawn Cai and colleagues, with an educational vanessa from [employer]. Review of Systems Const Denies chills, Denies fatigue, Denies fever(s) and Denies headache(s) ENT Denies dysphagia, Denies dizziness, Denies otalgia, Denies headache(s), Denies neck pain, Denies odynophagia and Denies sore throat Card Denies chest pain, Denies palpitations and Denies dyspnea Resp Denies cough, Denies dyspnea and Denies wheezing GI Denies abdominal pain, Denies constipation, Denies dysphagia, Denies heartburn, Denies diarrhea, Denies nausea, Denies odynophagia and Denies vomiting Denies difficulty voiding, Denies nocturia, Denies dysuria, Reports urinary incontinence (mostly at night) and Denies urinary urgency Musc Denies back pain, Denies arthralgias, Denies muscle weakness, Denies neck pain and Reports tingling (on and off in the right arm) Skin/Breast Denies rash Neuro Denies dizziness, Denies headache(s) and Reports tingling (on and off in the right arm) Endo Denies fatigue and Denies palpitations Aller/Immun Denies wheezing Physical exam (Primary Care) Vital Signs: Last Vital Signs Pulse 84 05/08/24 12:51 BP 124/76 05/08/24 12:51 Pulse Ox 96 05/08/24 12:51 Oxygen Delivery Method Room Air 05/08/24 12:51 BMI result Body Mass Index 26.9 Tobacco/Smoking Status: Tobacco use Status Tobacco use date assessed 05/08/24 05/08/24 12:57 Patient Tobacco Use Status Former Tobacco user 05/08/24 12:57 Tobacco use type Cigarette 05/08/24 12:57 e-Cigarette/Vaping Use Never Used 05/08/24 12:57 PHQ-9: PHQ-9 Score PHQ-9: Total score 0 05/08/24 13:24 Depression Screening Interpretation: Negative Thrive Assessment: Date of Thrive Assessment Date Thrive assessed 05/08/24 05/08/24 12:57 Currently or been in a relationship where the following occur: No concerns reported Const General: no acute distress and alert HENMT Ears: TM's normal bilaterally and EAC's normal Throat: Yes posterior oropharynx normal and Yes tonsils normal (no TP congestion) Neck Neck: Yes no lymphadenopathy and Yes supple Thyroid: Thyroid normal Resp Auscultation: clear to auscultation bilaterally, no rales and no wheezes Cardio Rate: regular rate Rhythm: regular rhythm Heart sounds: no murmurs GI Palpation (GI): Soft to palpation and nontender Auscultation: normal bowel sounds Back/Spine/Pelvis Cervical Spine: No Cervical spine tenderness Thoracic/Lumbar Spine: No lumbar spinal tenderness Extrem General: Yes no clubbing, cyanosis or edema Office Procedures Flu Questionnaire Does the patient have a severe egg allergy?: No Does the patient have severe life threatening allergies?: No Does the patient have a fever or illness today?: No Has the patient ever had Guillain-[place] Syndrome?: No Has the patient ever had any past reaction to a flu shot?: No Immunizations Fluarix Triv [id number] (PF) 45 mcg (15 mcg x 3)/0.5 mL IM syringe Performing Provider: Howie Rangel MD [facility] Administered by: MARY Chopra on 05/08/24 13:24 Dose Route Admin Location Dispensed Lot Number Expiration Date NDC Resolution Expert 0.5 mL IM Left Deltoid 0.5 mL [id number] 12/15/24 [id number] [employer] VIS Given Date VIS Provided VIS Publication Date 05/08/24 Single Vaccine 21 Eligibility Eligibility Date Funding Source Not [facility] Eligible 05/08/24 Private Results Reviewed Results Reviewed: Laboratory Tests 03/27/23 05/02/24 08:38 10:50 WBC 7.5 Hgb 12.5 Hct 37.5 Plt Count 159 L Sodium 140 Potassium 4.4 Creatinine 0.82 Estimated GFR > 60 Fasting Glucose 96 Calcium 10.0 AST 29 ALT 28 Triglycerides 140 Cholesterol 176 LDL Cholesterol, Calc 101 H HDL Cholesterol 47 Vitamin B12 377 25-OH Vitamin D Total 45.3 TSH 2.97 Free T4 0.88 Ur Specific [place] 1.020 Urine Protein Negative Urine Glucose (UA) Negative Urine Blood Negative Urine Nitrite Negative Ur Leukocyte Esterase Moderate (2+) H Coding Level of Care Code Est Pt Level 4 (36155) Diagnoses Paresthesia of right arm R20.2 Mixed hyperlipidemia E78.2 Essential hypertension I10 Vitamin D deficiency E55.9 Glaucoma of both eyes, unspecified glaucoma type H40.9 Glaucoma type: unspecified Laterality: bilateral Overweight (BMI 25.0-29.9) E66.3 Additional Codes PHQ-9 - 03752 - PHQ-9 Billing: Yes ([id number]) Assessment & Plan Assessment & Plan (1) Paresthesia of right arm: Code(s): R20.2 - Paresthesia of skin Category: Medical Plan: Her B12 level was normal on her recent lab; TSH is also normal and she is not anemic Patient has no complaints of increased neck pain, right shoulder or right elbow pain and her right arm does not feel weak on exam Will send her for EMG and NCV for further evaluation of her recurrent right arm paresthesia (2) Mixed hyperlipidemia: Code(s): E78.2 - Mixed hyperlipidemia Category: Medical Plan: Results of her labs done last week reviewed and discussed with patient Continue Atorvastatin 10 mg QD Reinforced low-cholesterol diet Will recheck her labs and fasting lipids in 4 months for follow-up (3) Essential hypertension: Code(s): I10 - Essential (primary) hypertension Category: Medical Plan: Reinforced low sodium diet - goal is systolic BP of at least 130 to 140 mm or less Continue Lisinopril 20 mg QD (Rx refilled) and HCTZ 25 mg QD (4) Vitamin D deficiency: Code(s): E55.9 - Vitamin D deficiency, unspecified Category: Medical Plan: Continue Vitamin D3 2000 units QD (5) Glaucoma: Code(s): H40.9 - Unspecified glaucoma Category: Medical Qualifiers: Glaucoma type: unspecified Laterality: bilateral Qualified Code(s): H40.9 - Unspecified glaucoma Plan: Continue Travatan 0.004% eye drops apply 1 drop to each eye Q PM Follow up with ophthalmology as scheduled (6) Overweight (BMI 25.0-29.9): Code(s): E66.3 - Overweight Category: Medical Plan: Reinforced diet; exercise and weight loss are not realistic expectations given patient's age but she is advised to try to stay as active as she can Plan As requested, flu vaccine given to patient today Follow-up in 4 months Orders: Orders NE nerve conduction velocity 05/08/24 R20.2 - Paresthesia of skin Complete Blood Count Auto Diff 4 Months D64.9 - Anemia, unspecified Lipid Panel 4 Months E78.00 - Pure hypercholesterolemia, unspecified NE electromyogram (EMG) 05/08/24 R20.2 - Paresthesia of skin Comprehensive [place]. Panel Fast 4 Months E78.00 - Pure hypercholesterolemia, unspecified TSH reflex Free T4 4 Months E78.00 - Pure hypercholesterolemia, unspecified UA CC w/rflx Micro + Cult 4 Months R30.0 - Dysuria Influenza [id number] Immunization 05/08/24 Z23 - Encounter for immunization Vitamin D 25-OH Total 4 Months E55.9 - Vitamin D deficiency, unspecified Medications: Refilled cholecalciferol (vitamin D3) 50 mcg PO DAILY 90 days 90 caps 3RF
== END 2024-05-08 13:31 | disposition home or self-care (01) ==
PROVIDERS: PCP Internal Medicine; Visit Provider Internal Medicine
DX: R20.2 Paresthesia of skin (principal); E78.2 Mixed hyperlipidemia; I10 Essential (primary) hypertension; E55.9 Vitamin D deficiency, unspecified; H40.9 Unspecified glaucoma; E66.3 Overweight

== ENCOUNTER → 2024-05-08 12:49 | Outpatient (BNVA) | payer OTHER, SELFPAY | PROVIDERS: PCP Internal Medicine; Visit Provider Internal Medicine | DX: Z23 Encounter for immunization (principal); R20.2 Paresthesia of skin; E78.2 Mixed hyperlipidemia; I10 Essential (primary) hypertension; E55.9 Vitamin D deficiency, unspecified; E66.3 Overweight | CPT/HCPCS: 90471; 90656; 96127; 99212 ==

== ENCOUNTER 2024-08-05 10:22 | Outpatient (REF) | payer OTHER, SELFPAY ==
--- NOTE | 2024-08-05 10:27 | EMG_ITS ---
Right median and ulnar motor and sensory studies were performed. Right radial sensory study was performed and paraspinal muscles were tested with a needle. IMPRESSION: 1. Mild to moderate right median neuropathy across carpal tunnel. 2. Mild right ulnar neuropathy across cubital tunnel. MD ADRIANA Robledo/ALFONSO / [id number]
--- OUTSIDE RECORDS SUMMARY | 2024-08-05 11:21 | XMS_ITS | Clinical Summary ---
Author Organization [facility] it Address [address] [place] [address] Care Team Providers Care Ground Surveillance Systems Operator Name Role Phone Unavailable Primary Care Provider Unavailabl e Social History Tobacco Use Types Packs/Day Years Used Date Smoking Tobacco: Never Assessed Comments Unknown Sex and Gender Information Value Date Recorded Sex Assigned at Not on file Legal Sex Female 7:44 AM EST Gender Identity Not on file Sexual Orientation Not on file Plan of Treatment Health Maintenance Due Date Last Done Comments DTaP,Tdap,and Td Vaccines (1 - Tdap) 1962 Pneumococcal Vaccine: 50+ Years (1 of 1 - PCV) 1993 Zoster Vaccines (1 of 2) 1993 RSV Immunization Patients 60 + Years Old (1 - 1-dose 75+ series) 2018 Depression Screening 05/21/2022 Falls Risk Assessment 05/21/2022 Social Influencers of Health Screening 05/21/2022 COVID-19 Vaccine ( - 2023-2 5 season) 2024 Influenza Vaccine (#1) 2024 Osteoporosis Screening (Bone Density Screening) 08/12/2030 08/12/2020, 10/15/2017 HIB Vaccines Aged Out No longer eligi ble based on patient's age to complete this topic HPV Vaccines Aged Out No longer eligi ble based on patient's age to complete this topic Hepatitis A Vaccines Aged Out No long er eligible based on patient's age to complete this topic Hepatitis B Vaccines Aged Out No long er eligible based on patient's age to complete this topic IPV Vaccines Aged Out No longer eligi ble based on patient's age to complete this topic MMR Vaccines Aged Out No longer eligi ble based on patient's age to complete this topic Meningococcal ACWY Vaccine Aged Out N o longer eligible based on patient's age to complete this topic Meningococcal B Vacine Aged Out No lo nger eligible based on patient's age to complete this topic RSV Immunization Patients Under 20 months Aged Out No longer eligible b ased on patient's age to complete this topic Varicella Vaccines Aged Out No longer eligible based on patient's age to complete this topic Procedures Procedure Name Priority Date/Time Associated Diagnosis Comments [facility] DEXA AXIAL SKELETON Routine 08/12/2020 2:18 PM EST Encounter for screening for osteoporosis from Last 3 Months or Most Recently Relevant to Health Maintenance Results * [facility] DEXA AXIAL SKELETON (08/12/2020 2:18 PM EST) Anatomical Region Laterality Modality Mammography 08/12/2020 9:09 AM EST Narrative 08/12/2020 2:18 PM EST [facility] Diagnostic Imaging Department [address] [place] [id number] Patient: ??SUSTACHE,CARLENE A ?/Age/Sex: 1945 - Unit#: ??[id number] ? Location/Status: ??SPDIMAM/REG CLI ? [facility] Ordering Physician: ??FRED GUNTER CNM [facility] Dexa Axial Skeleton - 08/12/20953 HISTORY: ??The patient is a 75-year-old postmenopausal female with clinical concern for metabolic bone disease. FINDINGS: ??Dual energy x-ray absorptiometry of the lumbar spine and femurs is performed. The mean bone mineral density at L1-2 is 1.427 gm/cm2 which is 122% of that of young normals and 148% of that of age matched controls. This yields a T-score of 2.2 and a Z-score of 3.9 and there is therefore no evidence of osteoporosis or osteopenia here. The mean bone mineral density of the femurs bilaterally is 1.149 gm/cm2 which is 114% of that of young normals and 146% of that of age matched controls. ??This yields a T-score of 1.1 and a Z-score of 2.9 and there is therefore no evidence of osteoporosis or osteopenia here. IMPRESSION: 1. There is no evidence of osteoporosis or osteopenia. ??There has been a decrease of 2.1% in bone mineral density in the lumbar spine since the prior examination of 10/12/2017. ??There has been an increase of 0.1% in bone mineral density in the right femur and an increase of 1.1% in bone mineral density in the left femur. 2. FRAX analysis yields a 10-year probability of major osteoporotic fracture of 4.2% and a 10-year probability of hip fracture of 0.4%. Code 21572 Dictating Physician: ??QUYEN RUIZ MD Electronically Signed by: ??QUYEN RUIZ MD Dic Date/Time: ??08/12/20 1416 Sign date/Time: ??08/12/20 1418 Procedure Note Quyen Ruiz MD - 06/06/2022 [facility] Diagnostic Imaging Department [address] [place], [place] [id number] Patient: CARLENE BUSBY Italia Huber/Age/Sex: 1945 - 75 - F Unit#: [id number] [facility] Ordering Physician: JANIFRED RUDDY [facility] Dexa Axial Skeleton - 08/12/20 - 953 HISTORY: The patient is a 75-year-old postmenopausal female withclinical concern for metabolic bone disease. FINDINGS: Dual energy x-ray absorptiometry of the lumbar spine and femursis performed. The mean bone mineral density at L1-2 is 1.427 gm/cm2 which is122% of that of young normals and 148% of that of age matched controls. Thisyields a T-score of 2.2 and a Z-score of 3.9 and there is therefore no evidenceof osteoporosis or osteopenia here. The mean bone mineral density of the femurs bilaterally is 1.149 gm/li2tiuyl is 114% of that of young normals and 146% of that of age matched controls.This yields a T-score of 1.1 and a Z-score of 2.9 and there is therefore noevidence of osteoporosis or osteopenia here. IMPRESSION: 1. There is no evidence of osteoporosis or osteopenia. There has been a decrease of 2.1% in bone mineral density in the lumbar spine since theprior examination of 10/12/2017. There has been an increase of 0.1% in bonemineral density in the right femur and an increase of 1.1% in bone mineral densityin the left femur. 2. FRAX analysis yields a 10-year probability of major osteoporoticfracture of 4.2% and a 10-year probability of hip fracture of 0.4%. 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
--- OUTSIDE RECORDS SUMMARY | 2024-08-05 11:21 | XMS_ITS | Clinical Summary ---
Author Organization [facility] Address [address] [place] [address] Care Team Providers Care Water Resource Specialist Name Role Phone Unavailable Primary Care Provider Unavailabl e Source Comments PLEASE NOTE, if this patient is a minor, it may be UNLAWFUL to discuss sensitive information that is contained in these records (such as FAMILY PLANNING, MENTAL HEALTH or SUBSTANCE ABUSE) with the minor patient's parent or other person without the patient's specific authorization.[facility] Immunizations Name Administration Dates Next Due Moderna COVID-19 Vaccine, re d cap blue label, 12+ Primary Series 10/20/2020,09/22/2020 Social History Tobacco Use Types Packs/Day Years Used Date Smoking Tobacco: Never Assessed Social Connections Answer Date Recorded Social Connections and Isolation 0 06/13/2021 Financial Resource Strain Answer Date R ecorded Financial Resource Strain 0 2020 Stress Answer Date Recorded Stress 0 06/13/2021 Physical Activity Answer Date Recorded Physical Activity 0 06/13/2021 Food Insecurity Answer Date Recorded Food 0 06/13/2021 Transportation Needs Answer Date Record ed Transportation 0 06/13/2021 Housing Stability Answer Date Recorded Housing 0 06/13/2021 Safety and Environment Answer Date Mason rded Safety 0 06/13/2021 Utilities Answer Date Recorded Utilities 0 06/13/2021 Employment Answer Date Recorded Employment 0 06/13/2021 Comments Unknown Sex and Gender Information Value Date Recorded Sex Assigned at Not on file Legal Sex Female 7:15 AM PDT Gender Identity Not on file Sexual Orientation Not on file Plan of Treatment Health Maintenance Due Date Last Done Comments Tobacco Screening 1945 Hypertension Screening (#1) 1961 Medicare Annual Wellness Visit 1961 Imm-Zoster, Recombinant (1 of 2) 1993 Bone Density Screening 2008 Falls Prevention 2008 Imm-Pneumococcal 65+ (2 of 2 - PCV) 05/09/2017 05/09/2016, 08/12/2015 Imm-DTaP/Tdap/Td (1 - Tdap) 11/07/2017 11/06/2017 Alcohol and Drug Screen 06/18/2023 Depression Annual Screen 06/18/2023 [id number] (3 - 2023- season) 2024 021, 09/22/2020 Imm-Influenza (#1) 2024 03/21/2021, 0 03/12/2019, 05/20/2018, Additional history exists Insurance [facility] Member Subscriber Plan / Payer (Ef fective 2020-Present) Name:Carlene Busby Relation to Subscriber:Self Name:Carlene Busby Payer ID:[id number] Group ID:Not on file Type:[employer]em[employer]urvashi Address: [facility] [address] [address]
--- OUTSIDE RECORDS SUMMARY | 2024-08-05 11:21 | XMS_ITS | Patient Health Record ---
Author Organization [facility] Address [address] [place] [address] Care Team Providers Care Ranch Hand Supervisor Name Role Phone Paula Barron Primary Care Provider Unavailable Allergies No Known Allergies Reason For Referral No Information Medications Medication SIG (Take, Route, Frequency, Duration) Notes Start Date End Date Status Ciclopirox 8 % 1 application Knifer Up ally to toenails Once a day for 365 days 06/09/2021 Active Atorvastatin Calcium 10 MG 1 tablet Oral ly Once a day Active Montelukast Sodium 10 MG 1 tablet Orally Once a day Active Lisinopril 20 MG 1 tablet Orally Once a day Active hydroCHLOROthiazide 25 MG 1 tablet in th e morning Orally Once a day Active Hydrocortisone 1 % 1 application Knifer Up ally Once a day Active Plan Of Treatment No Information Insurance Providers Payer Name Payer Address Payer Phone Subscriber Number Group Number Insured Name Patient Relationship to Insured Coverage Start Date Coverage End Date [facility] [id number] [address] [place] [address] [phone] [id number] Qi Carlene Self - patient is the insured Medical (General) History Medical History History ICD Code Benign essential hypertension Hematuria, microscopic Mixed hyperlipidemia Overweight Urge urinary incontinence
== END 2024-08-05 10:23 | disposition home or self-care (01) ==
LOC: HO.NEURO 10:22
PROVIDERS: PCP Internal Medicine; Visit Provider Internal Medicine
DX: R20.2 Paresthesia of skin (principal)
CPT/HCPCS: 95886; 95909

== ENCOUNTER 2024-12-24 09:11 | Outpatient (AMB) | payer OTHER, SELFPAY ==
[2024-12-24 09:22] VITALS: BP 150/62; PULSE 85; O2SAT 95; BMI 26.6
--- NOTE | 2024-12-24 09:22 | A.OFFPC_ITS ---
Vital Signs 12/24/24 09:22 12/24/24 09:59 Height 5 ft 3 in Weight 150 lb 2 oz BMI 26.6 BP 150/62 H 160/80 H Blood Pressure Location Lt brachial Lt brachial Position Sitting Sitting Pulse 85 Pulse Source Pulse Oximeter Pulse Oximetry (%) 95 Oxygen Delivery Method Room Air Intake Visit Reasons: Follow Up Intake Note: Patient states she would like eyes drops for dry eyes Taco Maker Required: No Accompanied by: Self / Same As Patient Allergies No Known Allergies (No Known Allergies*) Allergy (Verified 12/24/24 09:42) Medication List - Last Reconciled 12/24/24 by Howie Rangel MD atorvastatin 10 mg PO DAILY 90 days cholecalciferol (vitamin D3) 50 mcg PO DAILY 90 days clotrimazole-betamethasone 1-0.05 % 1 appl topical BID 2 weeks [DISPOSABLE BED PADS As directed] [DISPOSABLE GLOVES (medium) As directed - 2 boxes] [DISPOSABLE WIPES As directed - 5 boxes ] hydrochlorothiazide 25 mg PO QAM 90 days hydrocortisone 1% (Anti-Itch (hydrocortisone)) 1 appl topical BID PRN 14 days incontinence pad, liner, disp (Underpads Regular) As directed [incontinence wipes As directed] lisinopril 20 mg PO DAILY 90 days [MEDIUM ABSORBANCY BLADDER PADS As directed] miscellaneous medical supply 3 ea miscellaneous Q2-4H miscellaneous medical supply 3 ea miscellaneous TID miscellaneous medical supply 3 ea miscellaneous DAILY naproxen 375 mg PO BID PRN nystatin (Nystop) 1 appl topical TID 10 days [ROLLATOR Walker As directed] travoprost 0.004% 1 drp ophthalmic (eye) QPM 30 days triamcinolone acetonide 0.5% 1 appl topical TID 10 days Tobacco use date assessed: 12/24/24 Fall risk assessment: No Falls in past year Last assessed Fall Risk: 12/24/24 Dental Screening Dental Screen Date: 12/24/24 Did you have a dental visit in the last 12 months?: No Did you have a dental problem in the last 6 months where you did not have access to dental care?: No Was dental information given to patient?: No HPI Follow Up HPI Details Patient comes in today for her follow up visit States that she feels okay She denies any headaches or dizziness Denies any chest pains, no increased SOB No nausea/vomiting, no abdominal pain No change in bowel habits noted She continues to experience on and off numbness and tingling sensation in her right upper extremity although she states that the symptoms are mostly mild and occur only occasionally lately Needs a few of her Rx refilled She's had no follow up labs done since they were last checked back in April 2024 but her daughter would like to have patient's cholesterol levels rechecked KARL as she seems to be forgetting to take her cholesterol Rx often lately as she still has a lot more cholesterol Rx in her bottle than there should be [facility] Medical History Glaucoma Intertrigo Vitamin D deficiency Overweight (BMI 25.0-29.9) Benign essential hypertension Mixed hyperlipidemia Urge urinary incontinence Dyslipidemia Essential hypertension Hematuria, microscopic Surgical History History of colonoscopy Family History Father CAD (coronary artery disease) CVD (cardiovascular disease) Mother Vertigo Paternal Grandmother Cancer Family/Other FH: mental illness Maternal Aunt Cancer Daughter In good health Son In good health Sister In good health Brother In good health Other Mental health problem Social History Housing: House Alcohol intake: never Patient Tobacco Use Status: Former Tobacco user Tobacco use type: Cigarette e-Cigarette/Vaping Use: Never Used Second Hand Smoke Exposure: Yes service: No Current occupational status: disabled Cognitive needs: No Hearing needs: No Vision needs: No Questionnaire PHQ-9 Over the last 2 weeks, how often have you been bothered by any of the following problems? 1. Little interest or pleasure in doing things: not at all 2. Feeling down, depressed, or hopeless: not at all 3. Trouble falling or staying asleep, or sleeping too much: not at all 4. Feeling tired or having little energy: not at all 5. Poor appetite or overeating: not at all 6. Feeling bad about yourself - or that you are a failure or have let yourself or your family down: not at all 7. Trouble concentrating on things, such as reading the newspaper or watching television: not at all 8. Moving or speaking so slowly that other people could have noticed. Or the opposite - being so fidgety or restless that you have been moving around a lot more than usual: not at all 9. Thoughts that you would be better off or of hurting yourself in some way: not at all Total score: 0 Depression Screening Interpretation: Negative Depression Screening Done: Yes 82062 - PHQ-9 Billing: Yes Source: Developed by Drs. Roly Corral, Malaika Bloom, Shawn Cai and colleagues, with an educational vanessa from [employer]. Thrive Questionnaire Date Thrive assessed: 12/24/24 I am a: Patient What is your living situation today?: I have a steady place to live Within the past 12 months, did the food you bought not last and you didn't have the money to get more?: Never true Within the past 12 months, did you worry whether your food would run out before you got money to buy more?: Never true Do you have trouble paying for medicines?: No Do you have trouble getting transportation to medical appointments?: No Do you have trouble paying your heating and electricity bill?: No Do you have trouble taking care of your child, family member or friend?: No Do you have trouble with day-to-day activities such as bathing, preparing meals, shopping, managing finances, etc.?: Yes Are you currently unemployed and looking for a job?: No Are you interested in more education?: No Please select the resources that you would like help with: None Currently or been in a relationship where the following occur: No concerns repor monico THRIVE Score: 0 AUDIT C Alcohol Use Questionnaire (AUDIT-C) 1. How often do you have a drink containing alcohol?: Never 3. How often do you have six or more drinks on one occasion?: Never Total Score: 0 Score Reviewed/Action Taken: Yes ADAM-7 AMB Questionnaire ADAM-7 Date ADAM - 7 assessed: 12/24/24 Feeling nervous, anxious, or on edge: 0 = Not at all Not being able to stop or control worryin = Not at all Worrying too much about different things: 0 = Not at all Trouble relaxin = Not at all Being so restless that it is hard to sit still: 0 = Not at all Becoming easily annoyed or irritable: 0 = Not at all Feeling afraid as if something awful might happen: 0 = Not at all Total ADAM-7 score (0-4 normal; 5-9 mild; 10-14 moderate; 15-21 severe): 0 Source: Developed by Drs. Roly Corral, Malaika Bloom, Shawn Cai and colleagues, with an educational vanessa from [employer]. Review of Systems Const Denies chills, Denies fatigue, Denies fever(s) and Denies headache(s) ENT Denies dysphagia, Denies dizziness, Denies otalgia, Denies headache(s), Denies neck pain, Denies odynophagia and Denies sore throat Card Denies chest pain, Denies palpitations and Denies dyspnea Resp Denies chest congestion, Denies cough and Denies dyspnea GI Denies abdominal pain, Denies constipation, Denies dysphagia, Denies heartburn, Denies diarrhea, Denies nausea, Denies odynophagia and Denies vomiting Denies difficulty voiding, Denies nocturia, Denies dysuria, Reports urinary incontinence (mostly at night) and Denies urinary urgency Musc Denies back pain, Denies arthralgias, Denies neck pain and Reports tingling (on and off in the right arm) Skin/Breast Denies rash Neuro Denies dizziness, Denies headache(s) and Reports tingling (on and off in the right arm) Endo Denies fatigue and Denies palpitations Physical exam (Primary Care) Vital Signs: Last Vital Signs Pulse 85 12/24/24 09:22 BP 150/62 H 12/24/24 09:22 Pulse Ox 95 12/24/24 09:22 Oxygen Delivery Method Room Air 12/24/24 09:22 BMI result Body Mass Index 26.6 Tobacco/Smoking Status: Tobacco use Status Tobacco use date assessed 12/24/24 12/24/24 09:27 Patient Tobacco Use Status Former Tobacco user 12/24/24 09:27 Tobacco use type Cigarette 12/24/24 09:27 e-Cigarette/Vaping Use Never Used 12/24/24 09:27 PHQ-9: PHQ-9 Score PHQ-9: Total score 0 12/24/24 09:27 Depression Screening Interpretation: Negative Thrive Assessment: Date of Thrive Assessment Date Thrive assessed 12/24/24 12/24/24 09:27 Currently or been in a relationship where the following occur: No concerns reported Const General: no acute distress and alert HENMT Ears: TM's normal bilaterally and EAC's normal Throat: Yes posterior oropharynx normal and Yes tonsils normal (no TP congestion) Neck Neck: Yes no lymphadenopathy and Yes supple Thyroid: Thyroid normal Resp Auscultation: clear to auscultation bilaterally, no rales and no wheezes Cardio Rate: regular rate Rhythm: regular rhythm Heart sounds: no murmurs GI Palpation (GI): Soft to palpation and nontender Auscultation: normal bowel sounds Back/Spine/Pelvis Cervical Spine: No Cervical spine tenderness Thoracic/Lumbar Spine: No lumbar spinal tenderness Extrem General: Yes no clubbing, cyanosis or edema Coding Level of Care Code Est Pt Level 4 (29123) Complex EM visit Add On G2211 Diagnoses Mixed hyperlipidemia E78.2 Essential hypertension I10 Vitamin D deficiency E55.9 Paresthesia of right arm R20.2 Glaucoma of both eyes, unspecified glaucoma type H40.9 Glaucoma type: unspecified Laterality: bilateral Overweight (BMI 25.0-29.9) E66.3 Additional Codes PHQ-9 - 27864 - PHQ-9 Billing: Yes ([id number]) Assessment & Plan Assessment & Plan (1) Mixed hyperlipidemia: Code(s): E78.2 - Mixed hyperlipidemia Category: Medical Plan: Patient has no follow up labs done recently - labs were last done back in April 2024 when she was last seen Per request, will have patient go and get her fasting lipids rechecked KARL (previous lab orders updated) Continue Atorvastatin 10 mg QD Reinforced low-cholesterol diet Will recheck her labs and fasting lipids in 4 months for follow-up (2) Essential hypertension: Code(s): I10 - Essential (primary) hypertension Category: Medical Plan: Reinforced low sodium diet - goal is systolic BP of at least 130 to 140 mm or less Her blood pressure is quite elevated today - patient states that she only took h er Lisinopril this morning and has not taken her HCTZ yet Continue Lisinopril 20 mg QD and HCTZ 25 mg QD and have instructed her to take her HCTZ KARL today and that she can take both BP Rx together in the future Will also have her get her BP rechecked in a couple of weeks through our nurse navigators for follow up (3) Vitamin D deficiency: Code(s): E55.9 - Vitamin D deficiency, unspecified Category: Medical Plan: Continue Vitamin D3 2000 units QD (4) Paresthesia of right arm: Code(s): R20.2 - Paresthesia of skin Category: Medical Plan: EMG and NCV done a few months ago revealed (+) findings of 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 and 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 Her B12 level was normal when previously checked; TSH was also normal and she is not anemic on her recent labs Patient has no complaints of increased neck pain, right shoulder or right elbow pain and her right arm does not feel weak on exam Have advised patient that if her right arm symptoms get too bothersome, would recommend conservative Mx with wrist brace - patient states that she will call for the Rx if her symptoms progress (5) Glaucoma: Code(s): H40.9 - Unspecified glaucoma Category: Medical Qualifiers: Glaucoma type: unspecified Laterality: bilateral Qualified Code(s): H40.9 - Unspecified glaucoma Plan: Continue Travatan 0.004% eye drops apply 1 drop to each eye Q PM Follow up with ophthalmology as scheduled (6) Overweight (BMI 25.0-29.9): Code(s): E66.3 - Overweight Category: Medical Plan: Reinforced diet; exercise and weight loss are not realistic expectations given patient's age but she is advised again to try to stay as active as she can Plan Follow-up in 4 months Orders: Orders Lipid Panel 4 Months E78.00 - Pure hypercholesterolemia, unspecified Complete Blood Count Auto Diff 4 Months D64.9 - Anemia, unspecified Comprehensive Kenvil. Panel Fast 4 Months E78.00 - Pure hypercholesterolemia, unspecified TSH reflex Free T4 4 Months E78.00 - Pure hypercholesterolemia, unspecified UA CC w/rflx Micro + Cult 4 Months R30.0 - Dysuria Vitamin D 25-OH Total 4 Months E55.9 - Vitamin D deficiency, unspecified Medications: Refilled hydrochlorothiazide 25 mg PO QAM 90 tabs 1RF 90 days I10 - Essential (primary) hypertension atorvastatin 10 mg PO DAILY 90 tabs 3RF 90 days E78.5 - Hyperlipidemia, unspecified cholecalciferol (vitamin D3) 50 mcg PO DAILY 90 caps 3RF 90 days travoprost 0.004% 1 drp ophthalmic (eye) QPM 5 mL 1RF 30 days lisinopril 20 mg PO DAILY 90 tabs 1RF 90 days I10 - Essential (primary) hypertension
--- OUTSIDE RECORDS SUMMARY | 2024-12-24 09:27 | XMS_ITS | Patient Health Record ---
Author Organization [facility] Address [address] [place] [address] Care Team Providers Care Guard Manager Name Role Phone Roly Myers Unavailable [phone] Reason For Referral No Information Plan Of Treatment No Information
--- OUTSIDE RECORDS SUMMARY | 2024-12-24 09:27 | XMS_ITS | Data Portability ---
Author Organization [employer] [facility], [facility] [employer] [facility] Address [address] [place] [address] Care Team Providers Care Road Test Examiner Name Role Phone SONIA JEREMY Primary Care Provider HIM CCA OTHER Assessment Encounter Date Assessment Date Assessment LastModified by Organization Details LastModified Time 06/25/2023 06/25/2023 As noted, we wer e called to see this patient regarding concerns of cough. Evaluation in the field was performed by my supervisor cold rolling colleague, as noted above, I provided real-time direction and supervision for this visit. The evaluation revealed pt has a viral syndrome w cough. covid/flu/strep all negative. vitals reassuring, as is exam. family requests benzonatate. Impression: viral URI Plan: benzonatate, supportive care Disposition: We discussed the diagnostic uncertainty of home visits and the risk associated with this. In this case, the patient and I felt this to be an acceptable and reasonable amount of risk given the benefit of avoiding an ED visit. We discussed the need to seek care urgently/emergentl y in the setting of any new or worsening serious symptoms, particularly dyspnea, fevers [email or web address] Not available 06/25/2023 12:19:27 03/24/2024 03/24/2024 service called f or leftfoot pain found 80 dayna with hx HTN HLD c/o L foot pain, swelling not red, not warm tender to touch 1g acetaminophen with some relief denies trauma, other inciting event VSS reported exam cool effusion lateral aspect of L foot no overlying rash, break in skin L sole and and interweb spaces wnl #L Foot pain unlikely new bony injury with cool effusion ddx includes OA or acute crystal arthritis -offered ketorlac low dose -pt wishes to conitnue with PO acetaminophen, which is reasonable -otherwise return to primary team [email or web address] Not available 03/24/2024 20:54:30 11/08/2024 11/08/2024 I have reviewed and agree with the Assessment and Plan as documented by the Grocery Store Courtesy Clerk. I provided real-time medical direction via phone for this encounter, and was available for additional phone based assistance as needed. I would add/emphasize: Patient seen for 3 days of nonproductive cough rhinorrhea and some myalgias. Denies shortness of breath chest pain or gastrointestinal symptoms. Afebrile AVSS saturating well on room air with unlabored respirations and clear lungs per report. COVID test positive. Patient declines Paxlovid therapy after being informed of potential benefits for this. Requesting prescription for benzonatate as this has helped her in the past. Recommended PCP follow-up and red flags that should prompt presentation to the emergency department discussed per supervisor cold rolling note. pallfather Not available 11/09/2024 07:20:41 Plan of Treatment Reminders Order Date Submit Date Provider Last Modified By Organization Details Last Modified Time Details Appointments None recorded. Lab rapid SARS CoV 2 Ag, QL IA, respiratory specimen [address], [id number] 5 20:50:44 rapid flu (A+B) [address], [address] 20:51:01 Referral None recorded. Procedures None recorded. Surgeries None recorded. Imaging None recorded. Medication Orders benzonatate 100 mg capsule 2024 025 [place] [employer] #[id number], [address], [place], [id number], 18:50:54 Flonase Allergy Relief 50 mcg/actuati on nasal spray,suspe nsion 2024 [facility] #[id number], [address], [place], [id number], 5 18:47:47 ketotifen 0.025 % (0.035 %) eye drops 2024 025 [facility] #[id number], [address], [place], [id number], 5 18:47:47 benzonatate 100 mg capsule 2023 024 [facility] #[id number], [address], [place], [id number], 4 12:16:54 Patient TargetsNo targets recorded. Patient InstructionsNo instructions recorded. Reason for Referral None Reported. Results Created Date Observation Date Name Description Value Unit Range Abnormal Flag Note LastModifiedBy Organization Detail LastModifiedTime Result Notes None recorded. Medical Equipment None Reported. Allergies No known drug allergies Medications Name Sig Start Date Stop Date Status Note LastModified by Organization Details LastModified Time atorvastatin 10 mg tablet TAKE 1 TABLET BY MOUTH DAILY active Not Available Not Available Not Available lisinopril 20 mg tablet TAKE 1 TABLET BY MOUTH DAILY active Not Available Not Available Not Available travoprost 0.004 % eye drops active Not Available Not Available Not Available benzonatate 100 mg capsule TAKE 1 CAPSULE BY MOUTH THREE TIMES DAILY FOR 10 DAYS NEEDED active Not Available Not Available No t Available fluoromethol one 0.1 % eye drops,suspen aminta SHAKE LIQUID AND INSTILL 1 DROP IN BOTH EYES FOUR TIMES DAILY active Not Available Not Available No t Available polymyxin B sulfate 10,000 unit-trimeth oprim 1 mg/mL eye drops INSTILL 1 DROP IN BOTH EYES EVERY 3 HOURS FOR 7 DAYS active Not Available Not Available No t Available hydrochlorot hiazide 25 mg tablet TAKE 1 TABLET BY MOUTH EVERY MORNING active Not Available Not Available No t Available fluticasone propionate 50 mcg/actuatio n nasal spray,suspen aminta SHAKE LIQUID AND USE 1 SPRAY IN EACH NOSTRIL EVERY DAY active Not Available Not Available No t Available amoxicillin 500 mg-potassium clavulanate 125 mg tablet TAKE 1 TABLET BY MOUTH TWICE DAILY FOR 7 DAYS active Not Available Not Available No t Available moxifloxacin 0.5 % eye drops INSTILL 1 DROP IN BOTH EYES FOUR TIMES DAILY active Not Available Not Available No t Available Eye Itch Relief 0.025 % (0.035 %) drops INSTILL 1 DROP INTO AFFECTED EYE(S) BY OPHTHALMIC ROUTE 2 TIMES PER DAY active Not Available Not Available No t Available cholecalcife rol (vitamin D3) 50 mcg (2,000 unit) capsule TAKE 1 CAPSULE BY MOUTH DAILY active Not Available Not Available Not Available BinaxNOW COVID-19 Ag Self Test kit TEST DIRECTED TODAY active Not Available Not Available No t Available Paxlovid 300 mg (150 mg x 2)-100 mg tablets in a dose pack TK 2 NIRMATRELVI R TS AND 1 RITONAVIR T TOGETHER PO BID FOR 5 DAYS BID FOR 5 DAYS active Not Available Not Available N ot Available Vitals Date Recorded Oxygen saturation Oxygen saturation in Arterial blood by Pulse oximetry Body height Heart rate Body weight Respiratory rate Body temperature Systolic And Diastolic Provider Name and Address Organization Details Last Updated DateTime 4 99 % 99 % 154.94 cm 73 /min 60553.0 24 g 16 /min 97.6 [degF] 134/52 mm[Hg] Not Available [facility] 4 12:14:23 Date Recorded Heart rate Respiratory rate Body weight Oxygen saturation Oxygen saturation in Arterial blood by Pulse oximetry Body height Body temperature Systolic And Diastolic Provider Name and Address Organization Details Last Updated DateTime 5 76 /min 143 /min 13192.8 g 96 % 96 % 157.48 cm 98 [degF] 125/80 mm[Hg] Not Available [facility] 5 18:41:56 Date Recorded Respiratory rate Body temperature Oxygen saturation Oxygen saturation in Arterial blood by Pulse oximetry Heart rate Systolic And Diastolic Provider Name and Address Organization Details Last Updated DateTime 5 14 /min 97.9 [degF] 96 % 96 % 87 /min 138/67 mm[Hg] Not Available [facility] 5 15:50:11 Date Recorded Respiratory rate Oxygen saturation Oxygen saturation in Arterial blood by Pulse oximetry Heart rate Body height Body weight Body temperature Systolic And Diastolic Provider Name and Address Organization Details Last Updated DateTime 4 18 /min 95 % 95 % 86 /min 154.94 cm 33983.7 6 g 98.8 [degF] 162/66 mm[Hg] Not Available [facility] 4 20:26:05 Social History None recorded. Functional Status None recorded. Mental Status None recorded. Family History Nothing Reported. Medical History No medical history recorded. Gynecological HistoryNo gynecological history recorded. Obstetrics History GPAL:G 0 P 0 0 0 0 Past Encounters Encounter ID Performer Location Encounter Start Date Encounter Closed Date Diagnosis/Indication Diagnosis SNOMED-CT Code Diagnosis ICD10 Code Diagnosis Note [id number] MERRY DIAZ MD [address] [address] 06/25/2023 12:14:20 06/26/2023 10:49:08 Cough 24909173 R05.9 [id number] Paige Montenegro MD [address] [address] 03/24/2024 20:06:07 03/24/2024 23:43:49 Pain in left foot 4816282322 47085 M79.672 [id number] DANITZA WASHBURN MD [address] [address] 10/16/2024 18:39:23 10/17/2024 00:06:11 Seasonal allergy 612488433 J30.2 Evaluation in the field was performed by my supervisor cold rolling colleague, as noted above, I provided real-time direction and supervisio n for this visit. The evaluation revealed 79-year-ol d female with a history of hypertensi on and hyperlipid emia presents with bilateral eye itching, redness, and nasal congestion for the past 3 days. She denies any eye discharge, changes in vision, or eye pain. She also denies sore throat, headache, nausea, vomiting, diarrhea, shortness of breath, or any other systemic symptoms. No fever, chills, or change in appetite.S he reports prior use of Flonase, which provided some relief in the past. Vital Signs: Stable. Afebrile.E xam:Patien t is alert, oriented x3, in no acute distressEy es: No scleral injection or drainage; pupils equal, round, and reactive to lightLungs : Clear to auscultati on bilaterall yAbdomen: Soft, non-tender Extremitie s: No abnormalit ies notedAller gies: Reviewed Impression :Bilateral eye itching and nasal congestion , most likely consistent with allergic conjunctiv itis and allergic rhinitis. Plan:Start Flonase once dailyRx for ketotifen for symptom relief sent to her pharmacyPt advised to consider adding a non-sedati ng oral antihistam ine (e.g., loratadine or cetirizine )Educated on allergen avoidance measuresRe d flags discussed including vision changes, eye pain, purulent discharge, fever, or worsening symptoms Primary care, consider__ _ Dispositio n: We discussed the diagnostic uncertaint y of home visits and the risk associated with this. In this case, the patient and I felt this to be an acceptable and reasonable amount of risk given the benefit of avoiding an ED visit. We discussed the need to seek care urgently/e mergently in the setting of any new or worsening serious symptoms, particular ly vision changes, eye pain, purulent discharge, fever, or worsening symptoms [id number] Florentino Pearce MD Main - [address] [address] 11/08/2024 15:50:09 11/10/2024 19:51:06 COVID-19 [id number] U07.1 Health Concerns Section Related Observation LastModified by Organization Detai ls LastModified Time None Recorded Concern Status LastModified by Organization Details LastModified Time None Recorded Advance Directives Directive None Recorded Payers Insurance Date Sequence Insurance Name Policy Number Policy Hills Covered Member ID Hills Member ID Guarantor Name 11/08/2024 1 [facility] - DOS ON OR AFTER 2022 - DUAL ELIGIBLE - [employer] OPT[employer] AND ONE CARE (MEDICARE REPLACEMENT/ADV ANTAGE - HMO) Carlene Busby [id number] Carlene Busby Notes Date Note Type Note Provider Name and Address Organization Details Recorded Time 06/25/2023 text/html CRC Nurse Triage Notes (Lynda Benjamin): Reason For Request: cough Chief Complaints: Cough PMH: Hypertension, Other Allergies: Unknown Comments: Verified identity / address Daughters calling for member with severe cough. Member has been taking OTC Mucinex with no change. Member has had it for a few days. Denies Fever/ chills/ N/v/d. Member does not have any sob with cough. Member is getting up sputum but unsure what color. Member is concerned with bronchitis as she has had it in the past PMH > HTN > Arthritis / High chol .................... .................... .................... .................... .................... .................... .................... . [employer] Courtesy Clerk Note From Nilson Barros: Pt reports dry cough for one week. Pt sts other members of the household have similar sx. Pt denies CP, SOB, PETTIT, f/n/v/d. Pt denies any respiratory hx. Pt requesting benzonatate because it has worked well in the past. Pt is alert, NAD. VSS. Afebrile. Non focal neuro exam. Normal gait. Lungs CTA. Benign ABD exam. No LE edema. Rapid covid, flu and strep negative. Pt s sx seem c/w viral URI. [facility] [place] and sent rx for benzonatate to pharmacy. Pt instructed to f/u with PCP and to seek emergent medical care for new or worsening sx, which are reviewed with her. .................... .................... .................... .................... .................... .................... .................... . Disposition: Fulfilled MERRY DIAZ MD [address] [facility],[address], [place], [address], [email or web address] 06/25/2023 13:14:17 03/24/2024 text/html CRC Nurse Triage Notes (Keke Hinton): Reason For Request: Pt's daughter Meenu reporting that the side of her right foot was bothering her with pain, inflammation, swelling Chief Complaints: Edema PMH: Hypertension Allergies: No Known Comments: Patients daughter calling in to place a referral, patient identified via name and . PMHx- HTN and HLD. NKDA. Per daughter patient started limping yesterday on the right side, and endorsed pain to the outer aspect of her right foot. Daughter notes swelling, redness and warmth, patient does not take any blood thinners, no history of gout or blood clots. Patient denies falls or injury to the area. She had a bone spur on the bottom of her foot, many many years ago. Per daughter there are no scratches or bite strange. No fever/chills. Patient has been using a pain cream and tylenol with no relief. Patient would like to be evaluated. .................... .................... .................... .................... .................... .................... .................... . [employer] Courtesy Clerk Note From Eliseo Jo: Dispatched to the above address for the report of edema in the foot. Upon our arrival the pt was found sitting on the sofa with a complaint of her pain on her left foot on the lateral aspect of her foot. Pictures were taken and sent to Dr Hayes and uploaded. The pt denies any injury noted on exam and there was no visible insect bite. The pt stated she had taken 1000mg of Tylenol which was around 1600 and she did have some relief. Dr Hayes consulted and was advised, and he ordered 15 mg of Ketorolac IM and then to have the pt take ibuprofen 200 mg every 4 hrs. The pt denied the Ketorolac and then stated she would continue with Tylenol. The pt was educated and she was advised to call her PCP or us back if things changed. .................... .................... .................... .................... .................... .................... .................... . Disposition: Mai Montenegro MD [address] [facility],[address], [place], [address], [email or web address] 03/24/2024 22:08:56 10/16/2024 text/html CRC Nurse Triage Notes (Lynda Benjamin): Reason For Request: Pt is experiencing red, itchy and swollen eyes. This is causing quite a bit of pain since Sunday Chief Complaints: Eye Complaint PMH: Hypertension, Hyperlipidemia PMH Reviewed at 10/16/2024 14:16 Allergies Reviewed at 10/16/2024 14:16 Comments: 79 y.o female complains of Eye Complaint Pt has c/o itchy swelling red eyes for both eyes. She feels that the eyes are getting worse. She denies any discharge. She denies any changes in vision . She denies any fever/ chills/ Body aches/ nausea or vomiting I provided information on the mobile health provider response time and advised the patient and/or caregiver to monitor reported signs and symptoms. I discussed the warning signs of when to seek emergency care. .................... .................... .................... .................... .................... .................... .................... . [employer] Courtesy Clerk Note From Pollo Loo: Patient alert and oriented complains of nasal congestion and itching bilateral eyes times three days. Patient denies eye pain, denies sore throat, headache, nausea, vomiting, diarrhea, difficulty breathing or any other. Patient reports using Flonase in the past with some relief, years ago. Patient denies fever, chills, or change of appetite. Patient pink warm dry secondary exam unremarkable negative increased work of breathing positive full sentences abdomen soft, nontender extremities unremarkable. Eyes as pictured, no swelling, discharge, redness, or other noted. 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 Red flags patient education discussed. Patient also advised to use Najma or Claritin. Patient and family demonstrate understanding of care and plan. .................... .................... .................... .................... .................... .................... .................... . [facility] Consulted: Danitza Washburn .................... .................... .................... .................... .................... .................... .................... . Disposition: Mai WASHBURN MD [address] [facility],[address], [place], [address], [place] [email or web address] 10/16/2024 22:41:44 11/08/2024 text/html CRC Nurse Triage Notes (Luis E Cartagena): Reason For Request: cough/sneezing/conge stion Chief Complaints: Common Cold, Cough PMH: Hypertension, Hyperlipidemia PMH Reviewed at 11/08/2024 - 14:07 Allergies Reviewed at 11/08/2024:07 Comments: 79 y.o female complains of Common Cold, Cough Patient's daughter calling reporting patient with cough, sneezing, and congestion for the last two days. Daughter reports today patient reports feeling worse. Patient reportedly has been taking Delsym for cough and an allergy nasal spray for seasonal allergies. Patient also reported to daughter her body ached yesterday, unknown if still having body aches today. Daughter denies patient complaining of difficulty breathing. Daughter is not with patient and cannot answer any further triage questions. I provided information on the mobile health provider response time and advised the patient and/or caregiver to monitor reported signs and symptoms. I discussed the warning signs of when to seek emergency care -Juan Cartagena RN [employer] Courtesy Clerk Organization Information for Nilson Barros [employer] Legal Name: [facility] Address: [address] [place] [address], [place] [address], [employer] Entry Writer: Darrel Chaudhry MD IA No.: [id number] [employer] Courtesy Clerk POC Test Results from Nilson Barros Rapid COVID antigen (15:32:44) COVID: + Rapid influenza antigen (15:32:45) Flu: - .................... .................... .................... .................... .................... .................... .................... . [employer] Courtesy Clerk Note From Nilson Barros: This 79-year-old female with a history including but not limited to HTN, HLD requested a visit today to address three days of dry cough, rhinorrhea bodyaches. Patient denies any chest pain, shortness of breath, headaches, dizziness, fevers, nausea, vomiting, diarrhea. Patient is requesting benzonatate as it has worked well for her in the past. Patient is also taking Delsym. Patient states several other members of the household have been ill with similar symptoms. NKDA. Patient presents awake and alert, in no acute distress and speaking full sentences. Her vital signs are reasonably stable and she is afebrile. Nonfocal neurological exam. Normal gait. Normal oropharynx exam. Lungs are clear throughout auscultation. Abdomen is soft, nontender, nondistended. No lower extremity edema. Rapid COVID positive and flu negative. We discussed the diagnostic uncertainty of home visits and the risk associated with this. In this case, the patient and I felt this to be an acceptable and reasonable amount of risk given the benefit of avoiding an ED visit. I provided education about Paxlovid, patient refuses. I provided education on her prescription, appropriate Tylenol dosing, as well as additional OTC/supportive care therapy. I recommend she follows up with her PCP this week, stay well hydrated and present to the emergency department for any new or worsening severe symptoms such as chest pain, severe shortness of breath, high fever, altered mental status. The patient was given the opportunity to ask questions and is agreeable to this plan. .................... .................... .................... .................... .................... .................... .................... . [facility] Consulted: Florentino Pearce .................... .................... .................... .................... .................... .................... .................... . Disposition: Fulfilled Florentino Pearce MD [address] [facility],[address], [place], [address], [employer] [facility] [place] 11/09/2024 07:20:59 OBGyn Episode No OBEpisode recorded.
--- OUTSIDE RECORDS SUMMARY | 2024-12-24 09:27 | XMS_ITS | Patient Health Record ---
Author Organization [facility] Address [address] [facility] [address] [place] [address] Care Team Providers Care Paediatrician Name Role Phone Paula Barron Primary Care Provider Unavailable Allergies No Known Allergies Reason For Referral No Information Medications Medication SIG (Take, Route, Frequency, Duration) Notes Start Date End Date Status Ciclopirox 8 % 1 application Asset Analyst ally to toenails Once a day for 365 days 06/09/2021 Active Atorvastatin Calcium 10 MG 1 tablet Oral ly Once a day Active Montelukast Sodium 10 MG 1 tablet Orally Once a day Active Lisinopril 20 MG 1 tablet Orally Once a day Active hydroCHLOROthiazide 25 MG 1 tablet in th e morning Orally Once a day Active Hydrocortisone 1 % 1 application Asset Analyst ally Once a day Active Plan Of Treatment No Information Insurance Providers Payer Name Payer Address Payer Phone Subscriber Number Group Number Insured Name Patient Relationship to Insured Coverage Start Date Coverage End Date [facility] [address] [place] [address] [id number] Qi Carlene Self - patient is the insured Medical (General) History Medical History History ICD Code Benign essential hypertension Hematuria, microscopic Mixed hyperlipidemia Overweight Urge urinary incontinence
--- OUTSIDE RECORDS SUMMARY | 2024-12-24 09:27 | XMS_ITS | Clinical Summary ---
Author Organization [facility] Address [address] [place] [address] Care Team Providers Care Linseed Oil Temperer Name Role Phone Unavailable Primary Care Provider Unavailabl e Source Comments PLEASE NOTE, if this patient is a minor, it may be UNLAWFUL to discuss sensitive information that is contained in these records (such as FAMILY PLANNING, MENTAL HEALTH or SUBSTANCE ABUSE) with the minor patient's parent or other person without the patient's specific authorization.[facility] Immunizations Immunization Administration Dates Next Due Moderna COVID-19 Vaccine, [...] Date Last Done Comments Tobacco Screening 1943 Advanced Care Planning 1945 Hypertension Screening (#1) 1961 Medicare Annual Wellness Visit 1961 Imm-Zoster, Recombinant (1 of 2) 1993 Bone Density Screening 2008 Falls Prevention 2008 Imm-Pneumococcal 50+ (2 of 2 - PCV) 05/09/2017 05/09/2016, 08/12/2015 Imm-DTaP/Tdap/Td (1 - Tdap) 11/07/2017 11/06/2017 [id number] (3 - 2023- season) 2024 021, 09/22/2020 Imm-Influenza (#1) 2024 03/21/2021, 0 03/12/2019, 05/20/2018, Additional history exists Alcohol and Drug Screen 06/18/2024 Depression Annual Screen 06/18/2024 Insurance [facility]
--- OUTSIDE RECORDS SUMMARY | 2024-12-24 09:27 | XMS_ITS | Clinical Summary ---
Author Organization [facility] ity Address [address] [place] [address] Care Team Providers Care Hand Trimmer Name Role Phone Unavailable Primary Care Provider [...] (1 - Tdap) 1962 Pneumococcal Vaccine: 50+ Ye ars (1 of 1 - PCV) 1993 Zoster Vaccines (1 of 2) 1993 RSV Immunization Adult Patie nts (1 - 1-dose 75+ series) 2018 COVID-19 Vaccine (1 - 2023-2 5 season) 2024 Influenza Vaccine (#1) 2025 HIB Vaccines Aged Out No longer eligi [...] age to complete this topic Meningococcal B Vaccine Aged Out No l onger eligible based on patient's age to complete this topic RSV Immunization Patients Un effie 20 months Aged Out No longer eligible b ased on patient's age to complete this topic Varicella Vaccines Aged Out No longer eligible based on patient's age to complete this topic Advance Directives Documents on File Type Date Recorded Patient Seamless Tube Drawer Expl anation Health Care Decision (hx) 04/02/2018 AD ESPOSITO DIRECTIVE Health Care Decision (hx) 04/02/2018 AD ESPOSITO DIRECTIVE Health Care Decision (hx) 04/02/2018 AD ESPOSITO DIRECTIVE Health Care Decision (hx) 04/02/2018 AD ESPOSITO DIRECTIVE Health Care Decision (hx) 04/02/2018 AD ESPOSITO DIRECTIVE
[2024-12-24 09:59] VITALS: BP 160/80
== END 2024-12-24 10:06 | disposition home or self-care (01) ==
LOC: HO.HMCH 09:12
PROVIDERS: PCP Internal Medicine; Visit Provider Internal Medicine
DX: E78.2 Mixed hyperlipidemia (principal); I10 Essential (primary) hypertension; E55.9 Vitamin D deficiency, unspecified; R20.2 Paresthesia of skin; H40.9 Unspecified glaucoma; E66.3 Overweight

== ENCOUNTER → 2024-12-24 09:11 | Outpatient (BNVA) | payer OTHER, SELFPAY | PROVIDERS: PCP Internal Medicine; Visit Provider Internal Medicine | DX: I10 Essential (primary) hypertension (principal); E78.2 Mixed hyperlipidemia; E55.9 Vitamin D deficiency, unspecified; R20.2 Paresthesia of skin; H40.9 Unspecified glaucoma; E66.3 Overweight; Z68.26 Body mass index [BMI] 26.0-26.9, adult | CPT/HCPCS: 96127; 99212 ==

== ENCOUNTER → 2025-01-09 10:00 | Outpatient (BNVA) | payer OTHER, SELFPAY | PROVIDERS: PCP Internal Medicine | DX: Z01.30 Encounter for examination of blood pressure without abnormal findings (principal) | CPT/HCPCS: 99211 ==

== ENCOUNTER 2025-04-28 10:58 | Outpatient (REF) | payer OTHER, SELFPAY ==
[2025-04-28 11:12] LABS: MANUAL DIFF FLAG NO
[2025-04-28 11:36] LABS: Hematocrit 38.4 % (37.0-47.0); Hemoglobin 12.8 g/dl (12.0-16.0); Imm Gran Abs Auto 0.04 X10*3/uL (0.00-0.03); Imm Gran Pct Auto 0.5 % (0.0-0.4); Lymphocytes Absolute Auto 2.3 X10*3/uL (1.2-4.9); Mean Corpuscular HGB Conc 33.3 g/dl (31.0-35.0); Mean Corpuscular Hemoglobin 31.2 pg (27.0-33.0); Mean Corpuscular Volume 93.7 fL (80.0-98.0); NRBC Abs Auto 0.000 X10*3/uL (0.0-0.012); NRBC Pct Auto 0.0 /100WBC (0.0-0.2); Platelet Count 182 X10*3/uL (160-400); Red Blood Count 4.10 X10*6/uL (4.20-5.50); White Blood Count 7.5 X10*3/uL (4.8-10.8)
[2025-04-28 11:39] LABS: Appearance Urine Clear; Glucose Urine UA Negative (Negative); PH 6.0 (5.0-9.0); Specific Gravity - Urine 1.015 (1.005-1.025); UMIC TRIGGER UACC YES
[2025-04-28 12:43] LABS: Alanine Aminotransferase 27 U/L (0-31); Albumin Level 4.2 g/dL (3.5-5.0); Alkaline Phosphatase 79 U/L (39-117); Anion Gap 12 (12-20); Aspartate Amino Transferase 24 U/L (5-31); Blood Urea Nitrogen 32 mg/dL (9-16); Calcium 9.7 mg/dL (8.4-10.2); Carbon Dioxide 27 mmol/L (22-29); Chloride 105 mmol/L (96-108); Cholesterol 187 mg/dL (<200); Estimated Glomerular Filt Rate 58; HDL Cholesterol 43 mg/dL (>40); Potassium 4.2 mmol/L (3.3-5.1); Sodium 140 mmol/L (135-145); Total Protein 7.4 g/dL (6.5-8.0); Triglycerides 166 mg/dL (<150)
--- OUTSIDE RECORDS SUMMARY | 2025-04-28 13:08 | XMS_ITS | Patient Health Record ---
Author Organization [facility] Address [address] [place] [address] Care Team Providers Care Mechanical Design Engineer Facilities Name Role Phone Paula Barron Primary Care Provider Unavailable Allergies No Known Allergies Reason For Referral No Information Medications Medication SIG (Take, Route, Frequency, Duration) Notes Start Date End Date Status Ciclopirox 8 % 1 application Linderman Machine Operator ally to toenails Once a day; Duration: 365 days 06/09/2021 Active Atorvastatin Calcium 10 MG 1 tablet Oral ly Once a day Active Montelukast Sodium 10 MG 1 tablet Orally Once a day Active Lisinopril 20 MG 1 tablet Orally Once a day Active hydroCHLOROthiazide 25 MG 1 tablet in th e morning Orally Once a day Active Hydrocortisone 1 % 1 application Linderman Machine Operator ally Once a day Active Plan Of Treatment No Information Insurance Providers Payer Name Payer Address Payer Phone Subscriber Number Group Number Insured Name Patient Relationship to Insured Coverage Start Date Coverage End Date [facility] [address] [place] [address] [phone] [id number] SuadCarlene blanco Self - patient is the insured Medical (General) History Medical History History ICD Code Benign essential hypertension Hematuria, microscopic Mixed hyperlipidemia Overweight Urge urinary incontinence
--- OUTSIDE RECORDS SUMMARY | 2025-04-28 13:08 | XMS_ITS | Clinical Summary ---
Author Organization [facility] ity Address [address] [place] [address] Care Team Providers Care Ancillary Services Manager Name Role Phone Unavailable Primary Care Provider [...] nts (1 - 1-dose 75+ series) 2018 Depression Screening 06/18/2024 COVID-19 Vaccine (1 - 2023-2 5 season) 2025 Influenza Vaccine (#1) 2025 HIB Vaccines Aged [...] Documents on File Type Date Recorded Patient Kier Tender Expl anation Health Care Decision (hx) 04/02/2018 AD ESPOSITO DIRECTIVE Health Care Decision (hx) 04/02/2018 AD ESPOSITO DIRECTIVE Health Care Decision (hx) 04/02/2018 AD ESPOSITO DIRECTIVE Health Care Decision (hx) 04/02/2018 AD ESPOSITO DIRECTIVE Health Care Decision (hx) 04/02/2018 AD ESPOSITO DIRECTIVE
--- OUTSIDE RECORDS SUMMARY | 2025-04-28 13:08 | XMS_ITS | Patient Health Record ---
Author Organization [facility] Address [address] [place] [address] Care Team Providers Care Art Instructor Name Role Phone Roly Myers Unavailable [phone] Reason For Referral No Information Plan Of Treatment No Information
--- OUTSIDE RECORDS SUMMARY | 2025-04-28 13:08 | XMS_ITS | Continuity of Care Document ---
Author Name [facility] Address [address] [place] [address] Organization Unknown Address [address] [place] [address] Medications No known medications Problems No known problems
--- OUTSIDE RECORDS SUMMARY | 2025-04-28 13:08 | XMS_ITS | Clinical Summary ---
Author Organization [facility] Address [address] [place] [address] Care Team Providers Care Redrying Machine Operator Name Role Phone Unavailable Primary Care [...] 08/12/2015 Imm-DTaP/Tdap/Td (1 - Tdap) 11/07/2017 11/06/2017 Imm-RSV (adult) (1 - 1-dose 75+ series) 2018 Alcohol and Drug Screen 06/18/2024 Depression Annual Screen 06/18/2024 [id number] (3 - 2024- season) 2025 021, 09/22/2020 Imm-Influenza (#1) 2025 03/21/2021, 0 03/12/2019, 05/20/2018, Additional history exists Insurance [facility]
== END 2025-04-28 10:59 | disposition home or self-care (01) ==
LOC: HO.LAB 10:58
PROVIDERS: PCP Internal Medicine; Visit Provider Internal Medicine
DX: E78.00 Pure hypercholesterolemia, unspecified (principal); D64.9 Anemia, unspecified; E55.9 Vitamin D deficiency, unspecified
CPT/HCPCS: 36415; 80053; 80061; 81001; 82306; 84443; 85025

== ENCOUNTER 2025-04-30 10:32 | Outpatient (AMB) | payer OTHER, SELFPAY ==
[2025-04-30 10:42] VITALS: BP 130/68; PULSE 88; O2SAT 95; BMI 27.3
--- NOTE | 2025-04-30 10:42 | A.OFFPC_ITS ---
Vital Signs 04/30/25 10:42 Height 5 ft 3 in Weight 154 lb 4 oz BMI 27.3 BP 130/68 Blood Pressure Location Lt brachial Position Sitting Pulse 88 Pulse Source Pulse Oximeter Pulse Oximetry (%) 95 Oxygen Delivery Method Room Air Intake Visit Reasons: HTN, hyperlipidemia Intake Note: Patient states she would like eyes drops for dry eyes Manager Fire Required: No Accompanied by: Self / Same As Patient Allergies No Known Allergies (No Known Allergies*) Allergy (Verified 04/30/25 11:44) Medication List - Last Reconciled 04/30/25 by Howie Rangel MD atorvastatin 10 mg PO DAILY 90 days benzonatate 100 mg PO TID PRN cholecalciferol (vitamin D3) 50 mcg PO DAILY 90 days clotrimazole-betamethasone 1-0.05 % 1 appl topical BID 2 weeks [DISPOSABLE BED PADS As directed] [DISPOSABLE GLOVES (medium) As directed - 2 boxes] [DISPOSABLE WIPES As directed - 5 boxes ] hydrochlorothiazide 25 mg PO QAM 90 days hydrocortisone 1% (Anti-Itch (hydrocortisone)) 1 appl topical BID PRN 14 days incontinence pad, liner, disp (Underpads Regular) As directed [incontinence wipes As directed] lisinopril 20 mg PO DAILY 90 days [MEDIUM ABSORBANCY BLADDER PADS As directed] miscellaneous medical supply 3 ea miscellaneous Q2-4H miscellaneous medical supply 3 ea miscellaneous TID miscellaneous medical supply 3 ea miscellaneous DAILY naproxen 375 mg PO BID PRN nystatin (Nystop) 1 appl topical TID 10 days [ROLLATOR Walker As directed] travoprost 0.004% 1 drp ophthalmic (eye) QPM 30 days triamcinolone acetonide 0.5% 1 appl topical TID 10 days Tobacco use date assessed: 04/30/25 Fall risk assessment: No Falls in past year Last assessed Fall Risk: 04/30/25 Dental Screening Dental Screen Date: 04/30/25 Did you have a dental visit in the last 12 months?: No Did you have a dental problem in the last 6 months where you did not have access to dental care?: No Was dental information given to patient?: No HPI HTN, hyperlipidemia HPI Details Patient comes in today for her follow up visit States that she feels okay She denies any headaches or dizziness Denies any chest pains, no increased SOB No nausea/vomiting, no abdominal pain No change in bowel habits noted Adds that she has been experiencing a lot of symptoms of dry eyes lately Needs her HCTZ Rx refilled She had her follow up labs done a couple of days ago - to discuss her results [facility] Medical History (Updated 05/03/25 @ 05:08 by Howie Rangel MD) Glaucoma Intertrigo Vitamin D deficiency Overweight (BMI 25.0-29.9) Mixed hyperlipidemia Urge urinary incontinence Dyslipidemia Essential hypertension Hematuria, microscopic Surgical History History of colonoscopy Family History Father CAD (coronary artery disease) CVD (cardiovascular disease) Mother Vertigo Paternal Grandmother Cancer Family/Other FH: mental illness Maternal Aunt Cancer Daughter In good health Son In good health Sister In good health Brother In good health Other Mental health problem Social History Housing: House Alcohol intake: never Patient Tobacco Use Status: Former Tobacco user Tobacco use type: Cigarette e-Cigarette/Vaping Use: Never Used Second Hand Smoke Exposure: Yes service: No Current occupational status: disabled Cognitive needs: No Hearing needs: No Vision needs: No Questionnaire PHQ-9 Over the last 2 weeks, how often have you been bothered by any of the following problems? 1. Little interest or pleasure in doing things: not at all 2. Feeling down, depressed, or hopeless: not at all 3. Trouble falling or staying asleep, or sleeping too much: not at all 4. Feeling tired or having little energy: not at all 5. Poor appetite or overeating: not at all 6. Feeling bad about yourself - or that you are a failure or have let yourself or your family down: not at all 7. Trouble concentrating on things, such as reading the newspaper or watching television: not at all 8. Moving or speaking so slowly that other people could have noticed. Or the opposite - being so fidgety or restless that you have been moving around a lot more than usual: not at all 9. Thoughts that you would be better off or of hurting yourself in some way: not at all Total score: 0 Depression Screening Interpretation: Negative Depression Screening Done: Yes 72306 - PHQ-9 Billing: Yes Source: Developed by Drs. Roly Corral, Malaika Bloom, Shawn Cai and colleagues, with an educational vanessa from [employer]. Thrive Questionnaire Date Thrive assessed: 04/30/25 I am a: Patient What is your living situation today?: I have a steady place to live Within the past 12 months, did the food you bought not last and you didn't have the money to get more?: Never true Within the past 12 months, did you worry whether your food would run out before you got money to buy more?: Never true Do you have trouble paying for medicines?: No Do you have trouble getting transportation to medical appointments?: No Do you have trouble paying your heating and electricity bill?: No Do you have trouble taking care of your child, family member or friend?: No Do you have trouble with day-to-day activities such as bathing, preparing meals, shopping, managing finances, etc.?: Yes Are you currently unemployed and looking for a job?: No Are you interested in more education?: No Please select the resources that you would like help with: None Currently or been in a relationship where the following occur: No concerns reported THRIVE Score: 0 AUDIT C Alcohol Use Questionnaire (AUDIT-C) 1. How often do you have a drink containing alcohol?: Never 3. How often do you have six or more drinks on one occasion?: Never Total Score: 0 Score Reviewed/Action Taken: Yes ADAM-7 AMB Questionnaire ADAM-7 Date ADAM - 7 assessed: 04/30/25 Feeling nervous, anxious, or on edge: 0 = Not at all Not being able to stop or control worryin = Not at all Worrying too much about different things: 0 = Not at all Trouble relaxin = Not at all Being so restless that it is hard to sit still: 0 = Not at all Becoming easily annoyed or irritable: 0 = Not at all Feeling afraid as if something awful might happen: 0 = Not at all Total ADAM-7 score (0-4 normal; 5-9 mild; 10-14 moderate; 15-21 severe): 0 Source: Developed by Drs. Roly Corral, Malaika Bloom, Shawn Cai and colleagues, with an educational vanesas from [employer]. Review of Systems Const Denies chills, Denies fatigue, Denies fever(s) and Denies headache(s) ENT Denies dysphagia, Denies dizziness, Denies otalgia, Denies headache(s), Denies neck pain, Denies odynophagia and Denies sore throat Card Denies chest pain, Denies palpitations and Denies dyspnea Resp Denies chest congestion, Denies cough and Denies dyspnea GI Denies abdominal pain, Denies constipation, Denies dysphagia, Denies heartburn, Denies diarrhea, Denies nausea, Denies odynophagia and Denies vomiting Denies difficulty voiding, Denies nocturia, Denies dysuria, Reports urinary incontinence (mostly at night) and Denies urinary urgency Musc Denies back pain, Denies arthralgias and Denies neck pain Skin/Breast Denies rash Neuro Denies dizziness and Denies headache(s) Endo Denies fatigue and Denies palpitations Physical exam (Primary Care) Vital Signs: Last Vital Signs Pulse 88 04/30/25 10:42 BP 130/68 04/30/25 10:42 Pulse Ox 95 04/30/25 10:42 Oxygen Delivery Method Room Air 04/30/25 10:42 BMI result Body Mass Index 27.3 Tobacco/Smoking Status: Tobacco use Status Tobacco use date assessed 04/30/25 04/30/25 11:30 Patient Tobacco Use Status Former Tobacco user 04/30/25 10:47 Tobacco use type Cigarette 04/30/25 10:47 e-Cigarette/Vaping Use Never Used 04/30/25 10:47 PHQ-9: PHQ-9 Score PHQ-9: Total score 0 04/30/25 11:53 Depression Screening Interpretation: Negative Thrive Assessment: Date of Thrive Assessment Date Thrive assessed 04/30/25 04/30/25 11:30 Currently or been in a relationship where the following occur: No concerns reported Const General: no acute distress and alert HENMT Ears: TM's normal bilaterally and EAC's normal Throat: Yes posterior oropharynx normal and Yes tonsils normal (no TP congestion) Neck Neck: Yes no lymphadenopathy and Yes supple Thyroid: Thyroid normal Resp Auscultation: clear to auscultation bilaterally, no rales and no wheezes Cardio Rate: regular rate Rhythm: regular rhythm Heart sounds: no murmurs GI Palpation (GI): Soft to palpation and nontender Auscultation: normal bowel sounds Back/Spine/Pelvis Cervical Spine: No Cervical spine tenderness Thoracic/Lumbar Spine: No lumbar spinal tenderness Extrem General: Yes no clubbing, cyanosis or edema Results Reviewed Results Reviewed: Laboratory Tests 04/28/25 04/28/25 11:06 11:10 WBC 7.5 Hgb 12.8 Hct 38.4 Plt Count 182 Sodium 140 Potassium 4.2 Creatinine 0.93 Estimated GFR 58 Fasting Glucose 100 H Calcium 9.7 AST 24 ALT 27 Triglycerides 166 H Cholesterol 187 LDL Cholesterol, Calc 111 H HDL Cholesterol 43 25-OH Vitamin D Total 51.0 TSH 3.28 Ur Specific [place] 1.015 Urine Protein Negative Urine Glucose (UA) Negative Urine Blood Negative Urine Nitrite Negative Ur Leukocyte Esterase Trace H Coding Level of Care Code Est Pt Level 4 (33701) Diagnoses Mixed hyperlipidemia E78.2 Essential hypertension I10 Vitamin D deficiency E55.9 Paresthesia of right arm R20.2 Glaucoma of both eyes, unspecified glaucoma type H40.9 Glaucoma type: unspecified Laterality: bilateral Dry eyes, bilateral H04.123 Overweight (BMI 25.0-29.9) E66.3 Additional Codes PHQ-9 - 06269 - PHQ-9 Billing: Yes ([id number]) Assessment & Plan Assessment & Plan (1) Mixed hyperlipidemia: Code(s): E78.2 - Mixed hyperlipidemia Category: Medical Plan: Results of her labs done a couple of days ago reviewed and discussed with patient - she is cautioned that her cholesterol levels have increased again slightly from previous Reinforced low cholesterol diet Continue Atorvastatin 10 mg QD Will recheck her labs and fasting lipids in 4 months for follow-up (2) Essential hypertension: Code(s): I10 - Essential (primary) hypertension Category: Medical Plan: Reinforced low sodium diet - goal is systolic BP of at least 130 to 140 mm or less Continue Lisinopril 20 mg QD and HCTZ 25 mg QD (Rx refilled) Patient is advised to continue monitoring her blood pressure regularly (3) Vitamin D deficiency: Code(s): E55.9 - Vitamin D deficiency, unspecified Category: Medical Plan: Continue Vitamin D3 2000 units QD (4) Paresthesia of right arm: Code(s): R20.2 - Paresthesia of skin Category: Medical Plan: EMG and NCV done a few months ago revealed (+) findings of 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 and 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 Her B12 level was normal when previously checked; TSH was also normal and she is not anemic on her recent labs Have recommended conservative Mx with wrist brace - patient states that she will call for the Rx if her symptoms progress (5) Glaucoma: Code(s): H40.9 - Unspecified glaucoma Category: Medical Qualifiers: Glaucoma type: unspecified Laterality: bilateral Qualified Code(s): H40.9 - Unspecified glaucoma Plan: Continue Travatan 0.004% eye drops apply 1 drop to each eye Q PM Follow up with ophthalmology as scheduled (6) Dry eyes, bilateral: Code(s): H04.123 - Dry eye syndrome of bilateral lacrimal glands Category: Medical Plan: Will start patient on Natural Tears eye drops PRN (7) Overweight (BMI 25.0-29.9): Code(s): E66.3 - Overweight Category: Medical Plan: Reinforced diet; exercise and weight loss are not realistic expectations given patient's age but she is advised again to try to stay as active as she can Plan Follow-up in 4 months Orders: Orders Complete Blood Count Auto Diff 4 Months D64.9 - Anemia, unspecified Comprehensive [place]. Panel Fast 4 Months E78.00 - Pure hypercholesterolemia, unspecified UA CC w/rflx Micro + Cult 4 Months R30.0 - Dysuria Lipid Panel 4 Months E78.00 - Pure hypercholesterolemia, unspecified TSH reflex Free T4 4 Months E78.00 - Pure hypercholesterolemia, unspecified Vitamin D 25-OH Total 4 Months E55.9 - Vitamin D deficiency, unspecified Medications: New dextran 70-hypromellose (PF) 0.1-0.3 % (Natural Tears (PF)) 1 drp ophthalmic (eye) BEDTIME PRN 64 ea 1RF dry eye(s) 30 days Refilled hydrochlorothiazide 25 mg PO QAM 90 tabs 1RF 90 days I10 - Essential (primary) hypertension
--- OUTSIDE RECORDS SUMMARY | 2025-04-30 12:54 | XMS_ITS | Clinical Summary ---
Author Organization [facility] ity Address [address] [place] [address] Care Team Providers Care Computer Art Instructor Name Role Phone Unavailable Primary Care Provider [...] Depression Screening 06/18/2024 COVID-19 Vaccine (1 - 2024-2 6 season) 2025 Influenza Vaccine (#1) 2025 HIB [...] Documents on File Type Date Recorded Patient Flatwork Ironer Expl anation Health Care Decision (hx) 04/02/2018 AD ESPOSITO DIRECTIVE Health Care Decision (hx) 04/02/2018 AD ESPOSITO DIRECTIVE Health Care Decision (hx) 04/02/2018 AD ESPOSITO DIRECTIVE Health Care Decision (hx) 04/02/2018 AD ESPOSITO DIRECTIVE Health Care Decision (hx) 04/02/2018 AD ESPOSITO DIRECTIVE
--- OUTSIDE RECORDS SUMMARY | 2025-04-30 12:54 | XMS_ITS | Clinical Summary ---
Author Organization [facility] Address [address] [place] [address] Care Team Providers Care Tile Setter Supervisor Name Role Phone Unavailable Primary Care Provider [...] Drug Screen 06/18/2024 Depression Annual Screen 06/18/2024 [id number] (3 - 2024- season) 2025 021, 09/22/2020 Imm-Influenza (#1) 2025 03/21/2021, 0 03/12/2019, 05/20/2018, Additional history exists Insurance [facility]
--- OUTSIDE RECORDS SUMMARY | 2025-04-30 12:54 | XMS_ITS | Data Portability ---
Author Organization [email or web address] [facility] Address [address] [place] [address] Care Team Providers Care Car Pusher Name Role Phone SONIA JEREMY Primary Care Provider HIM CCA OTHER Assessment Encounter Date Assessment Date Assessment LastModified by Organization Details LastModified Time 06/25/2023 06/25/2023 As noted, we wer e called to see this patient regarding concerns of cough. Evaluation in the field was performed by my japanese interpreter colleague, as noted above, I provided real-time [...] Assessment and Plan as documented by the Pottery Decoration Designer. I provided real-time medical direction via phone [...] presentation to the emergency department discussed per japanese interpreter note. [email or web address] Not available 11/09/2024 07:20:41 04/20/2025 04/20/2025 79 yo F w few da ys of nasal congestion and fatigue, with persistent dry cough. VS wnl. Lungs are CTAB. Rapid flu and COVID negative. Will send rx tessalon perles TID PRN cough. Precautions reviewed. [email or web address] Not available 04/20/2025 22:05:53 Plan of Treatment Reminders Order Date Submit Date Provider Last Modified By Organization Details Last Modified Time Details Appointments None recorded. Lab rapid flu (A+B) 2024 [email or web address] [place] [address], [address] [place] [address], [id number] 5 22:03:44 rapid SARS CoV 2 Ag, QL IA, respiratory specimen 2024 025 [email or web address] 7 [facility], [address] [place] [address], [id number] 5 22:03:44 rapid SARS CoV 2 Ag, QL IA, respiratory specimen [address], [phone] 5 20:50:44 rapid flu (A+B) [address], [id number] 5 20:51:01 Referral None recorded. Procedures None recorded. Surgeries None recorded. Imaging None recorded. Medication Orders benzonatate 100 mg capsule 2024 025 [facility][id number], [address], [place], [id number], 5 22:03:57 benzonatate 100 mg capsule 2024 025 [facility] #[id number], [address], [place], [id number], 5 18:50:54 Flonase Allergy Relief 50 mcg/actuati on nasal spray,suspe nsion 2024 025 [facility] #62662, [address], [place], [id number], 5 18:47:47 ketotifen 0.025 % (0.035 %) eye drops 2024 025 [facility] #93805, [address], [place], [id number], 5 18:47:47 benzonatate 100 mg capsule 2023 024 [facility] #10179, [address], [place], [id number], 4 12:16:54 Patient TargetsNo targets recorded. Patient InstructionsNo instructions recorded. Reason for Referral None Reported. Results Created Date Observation Date Name Description Value Unit Range Abnormal Flag Note LastModifiedBy Organization Detail LastModifiedTime 04/20/2004/20/2025 rapid SARS CoV 2 Ag, QL IA, respi rator y speci men rapid SARS CoV 2 Ag, QL IA, respiratory specimen negati ve Not Available [facility] [address] [place], [phone] 04/20/2025 21:59:39 04/20/2004/20/2025 rapid flu (A+B) Flu negati ve Not Available [facility] [address], [place], [address] 04/20/2025 21:59:36 Result Notes None recorded. Medical Equipment None [...] Available Not Available benzonatate 100 mg capsule Take 1 capsule TID PRN cough 2024 active Not Available Not Available Not Avai lable fluoromethol one 0.1 % eye drops,suspen aminta [...] Itch Relief 0.025 % (0.035 %) drops active Not Available Not Available Not Available cholecalcife rol (vitamin D3) 50 mcg [...] % 99 % 154.94 cm 73 /min 89287.0 24 g 16 /min 97.6 [degF] 134/52 mm[Hg] Not Available [facility] 4 12:14:23 Date Recorded Heart rate Respiratory rate Body weight Oxygen saturation Oxygen saturation in Arterial blood by Pulse oximetry Body height Body temperature Systolic And Diastolic Provider Name and Address Organization Details Last Updated DateTime 5 76 /min 143 /min 36393.8 g 96 % 96 % 157.48 cm 98 [degF] 125/80 mm[Hg] Not Available [facility] 5 18:41:56 Date Recorded Respiratory rate Body temperature Oxygen saturation Oxygen saturation in Arterial blood by Pulse oximetry Heart rate Systolic And Diastolic Provider Name and Address Organization Details Last Updated DateTime 5 14 /min 97.9 [degF] 96 % 96 % 87 /min 138/67 mm[Hg] Not Available [facility] 5 15:50:11 Date Recorded Respiratory rate Oxygen saturation Oxygen saturation in Arterial blood by Pulse oximetry Heart rate Body height Body weight Body temperature Systolic And Diastolic Provider Name and Address Organization Details Last Updated DateTime 4 18 /min 95 % 95 % 86 /min 154.94 cm 96848.7 6 g 98.8 [degF] 162/66 mm[Hg] Not Available [facility] 4 20:26:05 Date Recorded Oxygen saturation Oxygen saturation in Arterial blood by Pulse oximetry Body temperature Heart rate Respiratory rate Systolic And Diastolic Provider Name and Address Organization Details Last Updated DateTime 5 98 % 98 % 98.9 [degF] 78 /min 16 /min 176/84 mm[Hg] Not Available [facility] 5 21:55:33 Social History None recorded. Functional Status None recorded. Mental Status None recorded. Family History Nothing Reported. Medical History No medical history recorded. Gynecological HistoryNo gynecological history recorded. Obstetrics History GPAL:G 0 P 0 0 0 0 Past Encounters Encounter ID Performer Location Encounter Start Date Encounter Closed Date Diagnosis/Indication Diagnosis SNOMED-CT Code Diagnosis ICD10 Code Diagnosis IMO Codes Diagnosis Note [id number] MERRY DIAZ MD Main - [facility] [address] 06/25/2023 12:14:20 06/26/2023 10:49:08 Cough 68806301 R05.9 [id number] Paige Motnenegro MD [facility] - [address] [address] 03/24/2024 20:06:07 03/24/2024 23:43:49 Pain in left foot 7125509314 05816 M79.672 [id number] DANITZA WASHBURN MD [facility] - [address] [address] 10/16/2024 18:39:23 10/17/2024 00:06:11 Seasonal allergy 190273897 J30.2 63604 Evaluation in the field was performed by my japanese interpreter colleague, as noted above, I provided real-time [...] pain, purulent discharge, fever, or worsening symptoms [id number] Florentino Pearce MD Main - [address] [address] 11/08/2024 15:50:09 11/10/2024 19:51:06 COVID-19 363138000 U07.8 [id number] LAYA BURRELL MD [facility] ED Medical [address] [address] 04/20/2025 21:55:26 04/21/2025 15:54:03 Dry cough 87904347 R05.8 [id number] Health Concerns Section Related Observation LastModified by Organization Detai ls LastModified Time None Recorded Concern Status LastModified by Organization Details LastModified Time None Recorded Advance Directives Directive None Recorded Payers Insurance Date Sequence Insurance Name Policy Number Policy Hills Covered Member ID Hills Member ID Guarantor Name 04/21/2025 1 [facility] - DOS ON OR AFTER 2022 - DUAL ELIGIBLE - LONG TERM OPTIONS AND ONE CARE (MEDICARE REPLACEMENT/ADV ANTAGE - HMO) Carlene Busby [id number] Carlene Busby Notes Date Note Type Note [...] .................... .................... .................... .................... .................... .................... . Pottery Decoration Designer Note From Nilson Barros: Pt reports dry [...] Pt s sx seem c/w viral URI. [facility] consulted and sent rx for benzonatate to pharmacy. Pt instructed to f/u with PCP and to seek emergent medical care for new or worsening sx, which are reviewed with her. .................... .................... .................... .................... .................... .................... .................... . Disposition: Mai DIAZ MD [address] [facility],[address], [place], [address], [place] ALEJANDRO ROSE 06/25/2023 13:14:17 03/24/2024 text/html [facility] Nurse Triage Notes (Keke Hinton): Reason For [...] .................... .................... .................... .................... .................... .................... . Pottery Decoration Designer Note From Eliseo Jo: Dispatched to the [...] .................... .................... .................... .................... . Disposition: Fulfilled Paige Montenegro MD [address] [place] [address],[address], [place], [address], [employer] 03/24/2024 22:08:56 10/16/2024 text/html ROS as noted in the [facility] CRC Nurse Triage Notes (Lynda Benjamin): Reason For Request: Pt is experiencing red, itchy and swollen eyes. This is causing quite a bit of pain since Sunday Chief Complaints: Eye Complaint PMH: Hypertension, Hyperlipidemia PMH Reviewed at 10/16/2024 14:16 Allergies Reviewed at 10/16/2024 - 14:16 Comments: 79 y.o female complains of [...] .................... .................... .................... .................... .................... .................... . Pottery Decoration Designer Note From Eze Pollo: Patient alert and oriented complains of nasal [...] no swelling, discharge, redness, or other noted. [facility] prescribes Flonase and eyedrop for patients pick up man at local pharmacy. Red flags patient education discussed. Patient also advised to use Najma or Claritin. Patient and family demonstrate understanding of care and plan. .................... .................... .................... .................... .................... .................... .................... . [facility] Consulted: Danitza Washburn .................... .................... .................... .................... .................... .................... .................... . Disposition: Fulfilled DANITZA WASHBURN MD [address] [facility],[address], [place], [address], DEE - ALEJANDRO VASQUEZ 10/16/2024 22:41:44 11/08/2024 text/html [facility] Nurse Triage Notes (Luis E Cartagena): Reason For Request: cough/sneezing/conge stion Chief Complaints: Common Cold, Cough PMH: Hypertension, Hyperlipidemia PMH Reviewed at 11/08/2024: Allergies Reviewed at 11/08/2024: Comments: 79 y.o female complains of Common [...] to seek emergency care -Juan Cartagena RN Pottery Decoration Designer Organization Information for [employer] DOCUSYS CHANI [employer] Legal Name: [facility] Address: [address] [place] [address], Exchange Mechanic: Darrel Chaudhry MD [place] No.: [id number] Pottery Decoration Designer POC Test Results from [employer] Rapid COVID antigen (15:32:44) COVID: + Rapid influenza antigen (15:32:45) Flu: - .................... .................... .................... .................... .................... .................... .................... . Pottery Decoration Designer Note From Nilson Barros: This 79-year-old female [...] .................... .................... .................... .................... .................... .................... . [facility] Consulted: Florentino Pearce .................... .................... .................... .................... .................... .................... .................... . Disposition: Fulfilled Florentino Pearce MD [address] [facility],[address], [place], [address], [email or web address] 11/09/2024 07:20:59 04/20/2025 text/html [facility] Nurse Triage Notes (Naz Dalton): Reason For Request: Pt's daughter reporting a really bad cough Patient Reports: Cough, fever greater than 2 days ; Sputum increase ; Cough Denies: Increased work of breathing/labored with or without fever Unable to speak in full sentences without distress Discoloration of skin -cyanosis Needs to sleep sitting up, can t catch breath Shortness of breath in setting of confusion Lower extremity swelling History of asthma, increased use of inhaler COPD COVID Exposure Shortness of breath with exertion Pain with inspiration Chief Complaints: Cough PMH: Hypertension, Hyperlipidemia PMH Reviewed at 04/20/2025 - 20:37 Allergies Reviewed at 04/20/2025 - 20:37 Comments: 79 y.o female complains of Cough Patients daughter is making referral Patient has had a bad productive cough with yellow phlegm denies any fever, endorses chills or body aches denies any vomiting/diarrhea does get nauseous with cough. denies any shortness of breath or chest pain. endorses loss of appetite. denies any kidney disease and not on any blood thinners no known sick contacts requesting [facility] visit. I provided information on the mobile health provider response time and advised the patient and/or caregiver to monitor reported signs and symptoms. I discussed the warning signs of when to seek emergency care. Pottery Decoration Designer Organization Information for [employer] Legal Name: [employer]. Address: [address] [place] [address] [place] [address], Exchange Mechanic: Luigi Franklin MD [facility] No.: [id number] Pottery Decoration Designer POC Test Results from [facility] Rapid influenza antigen (21:17:35) Flu: - Rapid COVID antigen (21:17:36) COVID: - .................... .................... .................... .................... .................... .................... .................... . Pottery Decoration Designer Note From [employer]: Dispatched to the call address for the female with cold like symptoms. Pt states she is on day four of not feeling well. She endorses a cough that is mostly dry but sometimes productive, nasal congestion and fatigue. Pt states she has been taking Mucinex with fair effect, she also had some left over Benzonatate which worked really well for her but she ran out and as looking for more. She has been maintaining baseline PO intake and getting rest. She denies chest pain, diff breathing/sob, abd pain, n/v/d or fevers at this time. Pt was found opening door, CAOx4, airway open and patent, breathing non labored, able to speak in full sentences, -JVD, -HEENT, skin PWD with good turgor, mucous membranes pink and moist, pupils PERRL, abd soft non tender/distended, -edema/swelling, +CMSx4, lungs CTA, afebrile, Rapid Covid/Flu (-). URI Pt was assessed. Rapid tests conducted and results uploaded to Pts portal. [facility] consulted. Pt provided reassurance. Script called into preferred pharmacy. Red flags discussed. ALL times are approx. .................... .................... .................... .................... .................... .................... .................... . [facility] Consulted: Laya Burrell .................... .................... .................... .................... .................... .................... .................... . Disposition: Fulfilled LAYA BURRELL MD [address] [facility] [facility], [place], [address], [employer] W[employer]S 04/20/2025 22:06:12 OBGyn Episode No OBEpisode recorded.
--- OUTSIDE RECORDS SUMMARY | 2025-04-30 12:54 | XMS_ITS | Patient Health Record ---
Author Organization [facility] Address [address] [facility] [address] [place] [address] Care Team Providers Care Senior Data Developer Name Role Phone Paula Barron Primary Care Provider Unavailable Allergies No Known Allergies Reason For Referral No Information Medications Medication SIG (Take, Route, Frequency, Duration) Notes Start Date End Date Status Ciclopirox 8 % 1 application Group Program Manager ally to toenails Once a day; Duration: 365 days 06/09/2021 Active Atorvastatin Calcium 10 MG 1 tablet Oral ly Once a day Active Montelukast Sodium 10 MG 1 tablet Orally Once a day Active Lisinopril 20 MG 1 tablet Orally Once a day Active hydroCHLOROthiazide 25 MG 1 tablet in th e morning Orally Once a day Active Hydrocortisone 1 % 1 application Group Program Manager ally Once a day Active Plan Of Treatment No Information Insurance Providers Payer Name Payer Address Payer Phone Subscriber Number Group Number Insured Name Patient Relationship to Insured Coverage Start Date Coverage End Date [facility] [address] [place] [address] [phone] [id number] SuadCarlene blanco Self - patient is the insured Medical (General) History Medical History History ICD Code Benign essential hypertension Hematuria, microscopic Mixed hyperlipidemia Overweight Urge urinary incontinence
--- OUTSIDE RECORDS SUMMARY | 2025-04-30 12:54 | XMS_ITS | Patient Health Record ---
Author Organization [facility] Address [address] [place] [address] Care Team Providers Care Health Analytics Consultant Name Role Phone Roly Myers Unavailable [phone] Reason For Referral No Information Plan Of Treatment No Information
== END 2025-04-30 11:57 | disposition home or self-care (01) ==
LOC: HO.HMCH 10:33
PROVIDERS: PCP Internal Medicine; Visit Provider Internal Medicine
DX: E78.2 Mixed hyperlipidemia (principal); I10 Essential (primary) hypertension; E55.9 Vitamin D deficiency, unspecified; R20.2 Paresthesia of skin; H40.9 Unspecified glaucoma; H04.123 Dry eye syndrome of bilateral lacrimal glands; E66.3 Overweight

== ENCOUNTER → 2025-04-30 10:32 | Outpatient (BNVA) | payer OTHER, SELFPAY | PROVIDERS: PCP Internal Medicine; Visit Provider Internal Medicine | DX: E78.2 Mixed hyperlipidemia (principal); I10 Essential (primary) hypertension; E55.9 Vitamin D deficiency, unspecified; R20.2 Paresthesia of skin; H40.9 Unspecified glaucoma; H04.123 Dry eye syndrome of bilateral lacrimal glands; E66.3 Overweight; D64.9 Anemia, unspecified; E78.00 Pure hypercholesterolemia, unspecified; R30.0 Dysuria; Z68.27 Body mass index [BMI] 27.0-27.9, adult | CPT/HCPCS: 96127; 99212 ==